=== PATIENT | male | born 1955 | race African-American/Black ===

== ENCOUNTER 2019-03-26 16:55 | Inpatient (IN) ==
[2019-03-26 17:43] LABS: Basophils % 0.3 % (0.0-0.8); Hematocrit 37.2 VOL% (42.0-52.0); Immature Granulocytes % 0.7 %; Lymphocytes # 0.7 10*3/uL (1.4-4.0); Lymphocytes % 5.4 % (21.2-54.2); Mean Corpuscular HGB Conc 32.3 GM/DL (32-36); Mean Corpuscular Volume 84.9 FL (87-102); Mean Platelet Volume 11.1 FL (9.6-12.0); Monocytes % 7.7 % (1.7-12.7); Neutrophils % 85.9 % (38.7-73.9); Platelet Count 408 T/CUMM (130-400); Red Blood Count 4.38 MC/CUMM (3.8-5.5); White Blood Count 13.5 T/CUMM (4-12)
[2019-03-26 18:00] LABS: Alanine Aminotransferase 9 U/L (16-61); Albumin 3.1 G/DL (3.4-5.0); Alkaline Phosphatase 72 U/L (45-117); Aspartate Amino Transferase 13 U/L (0-37); Blood Urea Nitrogen 18 MG/DL (7-18); Calcium 8.9 MG/DL (8.5-10.1); Glucose 137 MG/DL (74-106); Osmolality,Calculated 265.7 MOS/KG (273-304); Total Protein 7.4 G/DL (6.4-8.3)
[2019-03-26] MEDS ORDERED: SODIUM CHLORIDE 0.9% 1,000 ML IV STA (18:34)
[2019-03-26] MEDS ORDERED: ONDANSETRON 4 MG/2 ML VIAL IV STA (18:34)
[2019-03-26 19:15] LABS: Apearance,Urine CLEAR (Clear); Bacteria,Urine Occasional /HPF (Few); Bilirubin,Urine Negative (Negative); Blood, Urine Negative (Negative); Glucose,Urine (UA) Negative (Negative); Hyaline Casts,Urine 16 /LPF (0-3); Ketones,Urine Negative (Negative); Mucus,Urine Many /LPF (Occasional); Nitrite,Urine Negative (Negative); Protein,Urine Negative; RBC,Urine 1 /HPF (0-4); Sperm,Urine Moderate /HPF (Negative); Squamous Epithelial Cell,Urine Occasional /HPF (0-10); Urine Color Amber (Yellow); Urine Specific Gravity 1.016 (1.001-1.035); WBC,Urine 3 /HPF (0-6)
[2019-03-26] MEDS ORDERED: ONDANSETRON 4 MG/2 ML VIAL IV PRN (19:57)
[2019-03-26] MEDS ORDERED: ACETAMINOPHEN 325 MG TABLET PO PRN (19:57)
[2019-03-26] MEDS ORDERED: chlorproMAZINE INJ 25 MG in SODIUM CHLORIDE 0.9% 100 ML IV PRN (20:03)
[2019-03-26] MEDS: DEXTROSE 5% NACL 0.9% 1,000 ML IV SCH (22:00)
[2019-03-26] MEDS: ENOXAPARIN 40 MG/0.4 ML SYRINGE SUBCUT SCH (22:01)
[2019-03-27 05:42] LABS: Basophils % 0.2 % (0.0-0.8); Eosinophils % 0.2 % (0.00-10.9); Hematocrit 33.2 VOL% (42.0-52.0); Hemoglobin 10.6 GM/DL (14.0-18.0); Immature Granulocytes % 0.2 %; Immature Granulocytes Absolute 0.01 #; Lymphocytes # 0.9 10*3/uL (1.4-4.0); Mean Corpuscular HGB Conc 31.9 GM/DL (32-36); Mean Corpuscular Volume 85.3 FL (87-102); Mean Platelet Volume 11.1 FL (9.6-12.0); Monocytes % 15.8 % (1.7-12.7); Neutrophils % 61.6 % (38.7-73.9); Platelet Count 367 T/CUMM (130-400); Red Blood Count 3.89 MC/CUMM (3.8-5.5); Red Cell Distribution Width 14.3 % (9.3-17.3); White Blood Count 4.2 T/CUMM (4-12)
[2019-03-27 06:10] LABS: Band Neutrophils 5 % (0-10); Eosinophils 1 % (0-10); Hypochromasia 2+; Lymphocytes 23 % (20-55); Platelet Estimate Normal; Segmented Neutrophils 57 % (50-85); Total Cells Counted 100
[2019-03-27 06:11] LABS: Calcium 8.3 MG/DL (8.5-10.1); Osmolality,Calculated 276.8 MOS/KG (273-304); Thyroid Stimulating Hormone 1.9 uIU/ml (0.358-3.74)
[2019-03-27] MEDS: DEXTROSE 5% NACL 0.9% 1,000 ML IV SCH ×2 (06:19→17:36)
[2019-03-27] MEDS: POTASSIUM CHLORIDE 20 MEQ TABLET PO PRN ×4 (09:48→17:36)
[2019-03-27] MEDS: ENOXAPARIN 40 MG/0.4 ML SYRINGE SUBCUT SCH (20:39)
[2019-03-27] MEDS: POTASSIUM CHLORIDE 20 MEQ/15 ML UDCUP PO SCH (20:39)
[2019-03-27] MEDS ORDERED: cefTRIAXone 2,000 MG in SYRINGE 1 EACH IV SCH (21:30)
[2019-03-27] MEDS ORDERED: ALUMINUM/MAGNES/SIMETH MAX STR 30 ML UDCUP PO PRN (22:51)
[2019-03-28] MEDS ORDERED: ALBUTEROL/IPRATROPIUM 3 ML NEB RESP TX ONE (00:43)
[2019-03-28] MEDS ORDERED: FUROSEMIDE 40 MG/4 ML VIAL IM ONE (00:58)
[2019-03-28] MEDS ORDERED: FUROSEMIDE 40 MG/4 ML VIAL ONE (00:59)
[2019-03-28] MEDS ORDERED: FUROSEMIDE 40 MG/4 ML VIAL IV ONE (01:18)
[2019-03-28] MEDS: DEXTROSE 5% NACL 0.9% 1,000 ML IV SCH (01:20)
[2019-03-28 01:49] LABS: Basophils % 0.2 % (0.0-0.8); Eosinophils % 0.2 % (0.00-10.9); Hematocrit 35.1 VOL% (42.0-52.0); Hemoglobin 10.9 GM/DL (14.0-18.0); Immature Granulocytes % 0.2 %; Immature Granulocytes Absolute 0.01 #; Lymphocytes # 0.6 10*3/uL (1.4-4.0); Lymphocytes % 13.3 % (21.2-54.2); Mean Corpuscular HGB Conc 31.1 GM/DL (32-36); Mean Corpuscular Volume 87.8 FL (87-102); Mean Platelet Volume 10.5 FL (9.6-12.0); Neutrophils % 70.1 % (38.7-73.9); Platelet Count 302 T/CUMM (130-400); Red Cell Distribution Width 14.5 % (9.3-17.3); White Blood Count 4.1 T/CUMM (4-12)
[2019-03-28 02:11] LABS: Calcium 8.4 MG/DL (8.5-10.1); Osmolality,Calculated 276.8 MOS/KG (273-304)
[2019-03-28 03:54] LABS: Band Neutrophils 4 % (0-10); Eosinophils 1 % (0-10); Lymphocytes 14 % (20-55); Platelet Estimate Normal; Polychromasia Few; Segmented Neutrophils 75 % (50-85); Total Cells Counted 100
[2019-03-28] MEDS: POTASSIUM CHLORIDE 20 MEQ/15 ML UDCUP PO SCH ×3 (09:55→21:51)
[2019-03-28] MEDS ORDERED: PIPERACILLIN/TAZOBACTAM 3,375 MG in SODIUM CHLORIDE 0.9% 100 ML IV SCH (10:00)
[2019-03-28] MEDS ORDERED: PANTOPRAZOLE 40 MG TABLET PO SCH (10:30)
[2019-03-28] MEDS: methylPREDNISolone SOD SUC 40 MG/1 ML VIAL IV SCH ×2 (11:10→21:46)
[2019-03-28] MEDS ORDERED: DEXTROSE 10% 1,000 ML IV PRN (12:05)
[2019-03-28] MEDS ORDERED: DEXTROSE 50% 25 GM/50 ML VIAL IV PRN (12:05)
[2019-03-28] MEDS ORDERED: GLUCAGON 1 MG VIAL IM PRN (12:05)
[2019-03-28] MEDS: ALBUTEROL/IPRATROPIUM 3 ML NEB RESP TX SCH ×2 (12:49→19:25)
[2019-03-28] MEDS ORDERED: ALBUMIN 5% 12.5 GM/250 ML VIAL IV ONE (17:17)
[2019-03-28] MEDS ORDERED: PROPOFOL 200 MG/20 ML VIAL IV ONE (17:17)
[2019-03-28] MEDS ORDERED: fentaNYL 100 MCG/2 ML VIAL ONE (17:18)
[2019-03-28] MEDS ORDERED: HYDROCORTISONE 100 MG VIAL ONE (17:18)
[2019-03-28] MEDS ORDERED: MIDAZOLAM 2 MG/2 ML VIAL ONE (17:18)
[2019-03-28] MEDS ORDERED: ONDANSETRON 4 MG/2 ML VIAL ONE (17:18)
[2019-03-28] MEDS ORDERED: SUCCINYLCHOLINE 200 MG/10 ML VIAL ONE (17:18)
[2019-03-28] MEDS ORDERED: ACETAMINOPHEN 1,000 MG/100 ML VIAL IV ONE (17:18)
[2019-03-28] MEDS ORDERED: ROCURONIUM 100 MG/10 ML VIAL IV ONE (17:18)
[2019-03-28] MEDS ORDERED: HEPARIN/NACL 0.9% 2 UNITS/ML 500 ML IV ONE (17:41)
[2019-03-28] MEDS: DOXYCYCLINE HYCLATE INJ 100 MG in SODIUM CHLORIDE 0.9% 100 ML IV SCH ×2 (17:45→19:18)
[2019-03-28 18:27] LABS: ABG Base Excess 1.5 MMOL/L (-2.5-2.5); ABG HCO3 25.8 MMOL/L (20-26); ABG Oxygen Saturation 99.9 % (95-100); ABG PCO2 36.5 MM HG (35-48); ABG PH 7.449 (7.35-7.45); ABG TCO2 23.2 MMOL/L (23-27); Glucose Heart Surgery 158 MG/DL (74-106); Hematocrit Heart Surgery 28.5 PERCENT (42-52); Hemoglobin Heart Surgery 9.2 G/DL (14.0-18.0); Ionized Calcium Arterial 1.14 MMOL/L (1.21-1.46); PCO2 Patient Temp Arterial 36.5 MMHG; PH Patient Temp Arterial 7.449; Patient Temperature 37 CELCIUS; Potassium Heart/CVR 3.9 MMOL/L (3.5-5.1); Sodium Heart/CVR 136 MMOL/L (135-145)
[2019-03-28 19:06] LABS: Apearance,Urine CLEAR (Clear); Bilirubin,Urine Negative (Negative); Blood, Urine Negative (Negative); Glucose,Urine (UA) Negative (Negative); Ketones,Urine Negative (Negative); Mucus,Urine Occasional /LPF (Occasional); Nitrite,Urine Negative (Negative); Protein,Urine 30 MG/DL; RBC,Urine 2 /HPF (0-4); Urine Color Amber (Yellow); Urine Specific Gravity 1.055 (1.001-1.035); WBC,Urine 1 /HPF (0-6)
[2019-03-28] MEDS ORDERED: KETAMINE 500 MG/10 ML VIAL ONE (19:12)
[2019-03-28] MEDS ORDERED: LACTATED RINGERS 1,000 ML IV ONE (19:13)
[2019-03-28] MEDS ORDERED: SEVOFLURANE 1 UNIT/15 MINUTE INH ONE (19:13)
[2019-03-28] MEDS ORDERED: SODIUM CHLORIDE 0.9% 1,000 ML IV ONE (19:13)
[2019-03-28] MEDS ORDERED: PHENYLEPHRINE 10 MG/1 ML VIAL IV ONE (19:13)
[2019-03-28] MEDS: AMINO ACIDS/DEXT/LYTES 4.25-5% 2,000 ML IV SCH (19:53)
[2019-03-28] MEDS: DEXTROSE 5% NACL 0.45% 1,000 ML IV SCH (19:55)
[2019-03-28] MEDS: PIPERACILLIN/TAZOBACTAM 3,375 MG in SODIUM CHLORIDE 0.9% 100 ML IV SCH (20:02)
[2019-03-28] MEDS: PROPOFOL 1,000 MG/100 ML BOTTLE IV SCH (20:37)
[2019-03-28] MEDS: ENOXAPARIN 40 MG/0.4 ML SYRINGE SUBCUT SCH (21:45)
[2019-03-29] MEDS: ALBUTEROL/IPRATROPIUM 3 ML NEB RESP TX SCH ×4 (00:41→19:17)
[2019-03-29] MEDS: DOXYCYCLINE HYCLATE INJ 100 MG in SODIUM CHLORIDE 0.9% 100 ML IV SCH ×2 (03:37→15:20)
[2019-03-29] MEDS: PIPERACILLIN/TAZOBACTAM 3,375 MG in SODIUM CHLORIDE 0.9% 100 ML IV SCH ×3 (03:38→21:01)
[2019-03-29] MEDS: PROPOFOL 1,000 MG/100 ML BOTTLE IV SCH ×3 (04:43→19:54)
[2019-03-29 04:47] LABS: Basophils % 0.2 % (0.0-0.8); Hematocrit 27.3 VOL% (42.0-52.0); Hemoglobin 8.9 GM/DL (14.0-18.0); Immature Granulocytes % 0.4 %; Immature Granulocytes Absolute 0.02 #; Lymphocytes # 0.3 10*3/uL (1.4-4.0); Lymphocytes % 6.7 % (21.2-54.2); Mean Corpuscular HGB Conc 32.6 GM/DL (32-36); Mean Corpuscular Volume 85.8 FL (87-102); Monocytes % 6.3 % (1.7-12.7); Neutrophils % 86.4 % (38.7-73.9); Platelet Count 295 T/CUMM (130-400); Red Blood Count 3.18 MC/CUMM (3.8-5.5); Red Cell Distribution Width 14.6 % (9.3-17.3); White Blood Count 5.1 T/CUMM (4-12)
[2019-03-29] MEDS: DEXTROSE 5% NACL 0.45% 1,000 ML IV SCH ×3 (05:04→15:05)
[2019-03-29 05:10] LABS: Calcium 8.5 MG/DL (8.5-10.1); Osmolality,Calculated 279.5 MOS/KG (273-304)
[2019-03-29 05:50] LABS: Cancer Antigen 19-9 3.4 U/ML (0-37); Carcinoembryonic Antigen 6.2 NG/ML (0.0-5.0)
[2019-03-29 06:01] LABS: Band Neutrophils 10 % (0-10); Lymphocytes 8 % (20-55); Metamyelocytes 1 %; Segmented Neutrophils 74 % (50-85); Total Cells Counted 100
[2019-03-29 06:02] LABS: Anisocytosis 1+; Hypochromasia 2+; Macrocytosis 1+; Platelet Estimate Normal
[2019-03-29 06:48] LABS: ABG Base Excess 3.9 MMOL/L (-2.5-2.5); ABG HCO3 27.9 MMOL/L (20-26); ABG Oxygen Saturation 98.4 % (95-100); ABG PCO2 37.8 MM HG (35-48); ABG PH 7.472 (7.35-7.45); ABG PO2 96.1 MM HG (80-95); ABG TCO2 25.4 MMOL/L (23-27)
[2019-03-29] MEDS: POTASSIUM CHLORIDE 20 MEQ/15 ML UDCUP PO SCH (11:09)
[2019-03-29] MEDS: PANTOPRAZOLE 40 MG VIAL IV SCH (11:11)
[2019-03-29] MEDS: methylPREDNISolone SOD SUC 40 MG/1 ML VIAL IV SCH ×2 (11:13→21:45)
[2019-03-29] MEDS ORDERED: POTASSIUM CHLORIDE 20 MEQ/15 ML UDCUP PO SCH (11:30)
[2019-03-29] MEDS: AMINO ACIDS/DEXT/LYTES 4.25-5% 2,000 ML IV SCH (18:03)
[2019-03-29] MEDS: ENOXAPARIN 40 MG/0.4 ML SYRINGE SUBCUT SCH (21:02)
[2019-03-30] MEDS: DEXTROSE 5% NACL 0.45% 1,000 ML IV SCH ×2 (00:15→03:19)
[2019-03-30] MEDS: ALBUTEROL/IPRATROPIUM 3 ML NEB RESP TX SCH ×4 (01:31→20:07)
[2019-03-30] MEDS: DOXYCYCLINE HYCLATE INJ 100 MG in SODIUM CHLORIDE 0.9% 100 ML IV SCH ×2 (03:20→17:59)
[2019-03-30] MEDS: PIPERACILLIN/TAZOBACTAM 3,375 MG in SODIUM CHLORIDE 0.9% 100 ML IV SCH ×3 (04:25→19:23)
[2019-03-30 04:26] LABS: ABG Base Excess 3.2 MMOL/L (-2.5-2.5); ABG HCO3 27.3 MMOL/L (20-26); ABG Oxygen Saturation 98.1 % (95-100); ABG PCO2 37.1 MM HG (35-48); ABG PH 7.467 (7.35-7.45); ABG PO2 98.7 MM HG (80-95); ABG TCO2 24.2 MMOL/L (23-27)
[2019-03-30 04:27] LABS: Hematocrit 26.3 VOL% (42.0-52.0); Hemoglobin 8.6 GM/DL (14.0-18.0); Immature Granulocytes % 0.7 %; Immature Granulocytes Absolute 0.05 #; Lymphocytes # 0.2 10*3/uL (1.4-4.0); Lymphocytes % 3.1 % (21.2-54.2); Mean Corpuscular HGB Conc 32.7 GM/DL (32-36); Mean Corpuscular Volume 85.1 FL (87-102); Mean Platelet Volume 11.4 FL (9.6-12.0); Monocytes % 8.1 % (1.7-12.7); Neutrophils % 88.1 % (38.7-73.9); Platelet Count 301 T/CUMM (130-400); Red Blood Count 3.09 MC/CUMM (3.8-5.5); White Blood Count 6.7 T/CUMM (4-12)
[2019-03-30 04:50] LABS: Calcium 8.3 MG/DL (8.5-10.1); Osmolality,Calculated 286.1 MOS/KG (273-304)
[2019-03-30 05:12] LABS: Acanthocytes Few; Anisocytosis 1+; Band Neutrophils 2 % (0-10); Eosinophils 2 % (0-10); Lymphocytes 6 % (20-55); Microcytosis 1+; Platelet Estimate Normal; Segmented Neutrophils 83 % (50-85); Total Cells Counted 100
[2019-03-30] MEDS: PROPOFOL 1,000 MG/100 ML BOTTLE IV SCH ×2 (08:48→19:25)
[2019-03-30] MEDS: PANTOPRAZOLE 40 MG VIAL IV SCH (09:46)
[2019-03-30] MEDS: methylPREDNISolone SOD SUC 40 MG/1 ML VIAL IV SCH (09:48)
[2019-03-30] MEDS ORDERED: GLUCAGON 1 MG VIAL IM PRN (13:33)
[2019-03-30] MEDS ORDERED: DEXTROSE 50% 25 GM/50 ML VIAL IV PRN (13:33)
[2019-03-30] MEDS: cloNIDine 0.2 MG/24 HR PATCH TRANSDERM SCH (13:48)
[2019-03-30] MEDS: AMINO ACIDS/DEXT/LYTES 4.25-5% 2,000 ML IV SCH (18:00)
[2019-03-30] MEDS: INSULIN REGULAR 100 UNIT/ML SUBCUT SCH (18:18)
[2019-03-30] MEDS: ENOXAPARIN 40 MG/0.4 ML SYRINGE SUBCUT SCH (20:19)
[2019-03-31] MEDS: INSULIN REGULAR 100 UNIT/ML SUBCUT SCH ×5 (00:05→23:50)
[2019-03-31] MEDS: ALBUTEROL/IPRATROPIUM 3 ML NEB RESP TX SCH ×4 (01:36→19:43)
[2019-03-31] MEDS: DOXYCYCLINE HYCLATE INJ 100 MG in SODIUM CHLORIDE 0.9% 100 ML IV SCH ×2 (03:17→17:03)
[2019-03-31] MEDS: PIPERACILLIN/TAZOBACTAM 3,375 MG in SODIUM CHLORIDE 0.9% 100 ML IV SCH ×3 (04:53→21:18)
[2019-03-31 05:27] LABS: ABG HCO3 27.1 MMOL/L (20-26); ABG Oxygen Saturation 99.1 % (95-100); ABG PCO2 37.5 MM HG (35-48); ABG PH 7.461 (7.35-7.45)
[2019-03-31 05:53] LABS: Basophils % 0.1 % (0.0-0.8); Hematocrit 26.2 VOL% (42.0-52.0); Hemoglobin 8.3 GM/DL (14.0-18.0); Immature Granulocytes % 0.6 %; Immature Granulocytes Absolute 0.06 #; Lymphocytes % 10.6 % (21.2-54.2); Mean Corpuscular HGB Conc 31.7 GM/DL (32-36); Mean Corpuscular Volume 86.2 FL (87-102); Monocytes % 9.6 % (1.7-12.7); NRBC # 0.02 10*3/uL; Neutrophils % 79.1 % (38.7-73.9); Platelet Count 312 T/CUMM (130-400); Red Blood Count 3.04 MC/CUMM (3.8-5.5); Red Cell Distribution Width 15.2 % (9.3-17.3); White Blood Count 9.3 T/CUMM (4-12)
[2019-03-31 06:08] LABS: Alanine Aminotransferase < 9 U/L (16-61); Albumin 1.9 G/DL (3.4-5.0); Alkaline Phosphatase 48 U/L (45-117); Aspartate Amino Transferase 10 U/L (0-37); Blood Urea Nitrogen 13 MG/DL (7-18); Calcium 8.5 MG/DL (8.5-10.1); Glucose 111 MG/DL (74-106); Osmolality,Calculated 286.8 MOS/KG (273-304); Total Protein 5.6 G/DL (6.4-8.3)
[2019-03-31] MEDS: PROPOFOL 1,000 MG/100 ML BOTTLE IV SCH (06:38)
[2019-03-31] MEDS: PANTOPRAZOLE 40 MG VIAL IV SCH (08:44)
[2019-03-31 11:46] LABS: ABG Base Excess 4.6 MMOL/L (-2.5-2.5); ABG HCO3 28.6 MMOL/L (20-26); ABG Oxygen Saturation 97.4 % (95-100); ABG PCO2 38.8 MM HG (35-48); ABG PH 7.473 (7.35-7.45); ABG PO2 87.2 MM HG (80-95); ABG TCO2 26.2 MMOL/L (23-27)
[2019-03-31] MEDS ORDERED: HEPARIN/NACL 0.9% 2 UNITS/ML 500 ML IV ONE (11:46)
[2019-03-31] MEDS: MORPHINE 4 MG/1 ML VIAL IV PRN (14:24)
[2019-03-31] MEDS: AMINO ACIDS/DEXT/LYTES 4.25-5% 2,000 ML IV SCH (17:39)
[2019-03-31] MEDS: ENOXAPARIN 40 MG/0.4 ML SYRINGE SUBCUT SCH (21:21)
[2019-04-01] MEDS: ALBUTEROL/IPRATROPIUM 3 ML NEB RESP TX SCH ×4 (01:36→20:21)
[2019-04-01] MEDS: PIPERACILLIN/TAZOBACTAM 3,375 MG in SODIUM CHLORIDE 0.9% 100 ML IV SCH ×3 (03:23→20:19)
[2019-04-01] MEDS: DOXYCYCLINE HYCLATE INJ 100 MG in SODIUM CHLORIDE 0.9% 100 ML IV SCH ×2 (03:23→16:08)
[2019-04-01 04:36] LABS: ABG Base Excess 4.9 MMOL/L (-2.5-2.5); ABG HCO3 28.4 MMOL/L (20-26); ABG Oxygen Saturation 96.3 % (95-100); ABG PCO2 37.6 MM HG (35-48); ABG PH 7.496 (7.35-7.45); ABG PO2 88.3 MM HG (80-95); ABG TCO2 29.6 MMOL/L (23-27); Allen Test Positive
[2019-04-01 05:23] LABS: Basophils % 0.1 % (0.0-0.8); Eosinophils # 0.3 10*3/uL (0.0-0.87); Eosinophils % 4.4 % (0.00-10.9); Hematocrit 28.3 VOL% (42.0-52.0); Hemoglobin 8.8 GM/DL (14.0-18.0); Immature Granulocytes % 0.4 %; Immature Granulocytes Absolute 0.03 #; Lymphocytes # 1.3 10*3/uL (1.4-4.0); Lymphocytes % 19.1 % (21.2-54.2); Mean Corpuscular HGB Conc 31.1 GM/DL (32-36); Mean Platelet Volume 11.2 FL (9.6-12.0); Monocytes % 12.6 % (1.7-12.7); Neutrophils % 63.4 % (38.7-73.9); Platelet Count 343 T/CUMM (130-400); Red Blood Count 3.29 MC/CUMM (3.8-5.5); Red Cell Distribution Width 14.9 % (9.3-17.3); White Blood Count 6.8 T/CUMM (4-12)
[2019-04-01 06:00] LABS: Albumin 1.7 G/DL (3.4-5.0); Bilirubin,Total 1.1 MG/DL (0.2-1.0); Calcium 8.7 MG/DL (8.5-10.1); Osmolality,Calculated 286.8 MOS/KG (273-304); Total Protein 5.9 G/DL (6.4-8.3)
[2019-04-01] MEDS: INSULIN REGULAR 100 UNIT/ML SUBCUT SCH ×3 (06:21→18:26)
[2019-04-01] MEDS: MULTIVITAMIN LIQUID (CENTRUM) 60 ML BOTTLE PER TUBE SCH (09:48)
[2019-04-01] MEDS: PANTOPRAZOLE 40 MG VIAL IV SCH (09:48)
[2019-04-01] MEDS: AMINO ACIDS/DEXT/LYTES 4.25-5% 2,000 ML IV SCH (17:39)
[2019-04-01] MEDS: ENOXAPARIN 40 MG/0.4 ML SYRINGE SUBCUT SCH (20:19)
[2019-04-02] MEDS: ALBUTEROL/IPRATROPIUM 3 ML NEB RESP TX SCH ×4 (01:17→19:10)
[2019-04-02] MEDS: INSULIN REGULAR 100 UNIT/ML SUBCUT SCH ×4 (02:48→18:13)
[2019-04-02] MEDS: DOXYCYCLINE HYCLATE INJ 100 MG in SODIUM CHLORIDE 0.9% 100 ML IV SCH ×2 (03:53→16:18)
[2019-04-02] MEDS: PIPERACILLIN/TAZOBACTAM 3,375 MG in SODIUM CHLORIDE 0.9% 100 ML IV SCH ×3 (03:53→20:42)
[2019-04-02 05:20] LABS: Calcium 8.7 MG/DL (8.5-10.1)
[2019-04-02] MEDS: PANTOPRAZOLE 40 MG VIAL IV SCH (09:02)
[2019-04-02] MEDS: MULTIVITAMIN LIQUID (CENTRUM) 60 ML BOTTLE PER TUBE SCH (09:37)
[2019-04-02] MEDS: AMINO ACIDS/DEXT/LYTES 4.25-5% 2,000 ML IV SCH (17:49)
[2019-04-02] MEDS: ENOXAPARIN 40 MG/0.4 ML SYRINGE SUBCUT SCH (20:44)
[2019-04-03] MEDS: ALBUTEROL/IPRATROPIUM 3 ML NEB RESP TX SCH ×4 (00:07→19:37)
[2019-04-03] MEDS: INSULIN REGULAR 100 UNIT/ML SUBCUT SCH ×4 (01:31→18:18)
[2019-04-03] MEDS: DOXYCYCLINE HYCLATE INJ 100 MG in SODIUM CHLORIDE 0.9% 100 ML IV SCH ×2 (04:40→17:43)
[2019-04-03] MEDS: PIPERACILLIN/TAZOBACTAM 3,375 MG in SODIUM CHLORIDE 0.9% 100 ML IV SCH ×3 (04:41→20:36)
[2019-04-03 05:33] LABS: Calcium 8.6 MG/DL (8.5-10.1); Osmolality,Calculated 288.8 MOS/KG (273-304); Prealbumin 12.8 MG/DL (20-40)
[2019-04-03] MEDS: MULTIVITAMIN LIQUID (CENTRUM) 60 ML BOTTLE PER TUBE SCH (08:32)
[2019-04-03] MEDS: PANTOPRAZOLE 40 MG VIAL IV SCH (08:32)
[2019-04-03] MEDS: MORPHINE 4 MG/1 ML VIAL IV PRN (13:17)
[2019-04-03] MEDS: AMINO ACIDS/DEXT/LYTES 4.25-5% 2,000 ML IV SCH (17:42)
[2019-04-03] MEDS: ENOXAPARIN 40 MG/0.4 ML SYRINGE SUBCUT SCH (21:51)
[2019-04-04] MEDS: INSULIN REGULAR 100 UNIT/ML SUBCUT SCH ×5 (00:28→23:20)
[2019-04-04] MEDS: ALBUTEROL/IPRATROPIUM 3 ML NEB RESP TX SCH ×4 (00:33→19:59)
[2019-04-04] MEDS: DOXYCYCLINE HYCLATE INJ 100 MG in SODIUM CHLORIDE 0.9% 100 ML IV SCH ×2 (04:01→16:31)
[2019-04-04] MEDS: PIPERACILLIN/TAZOBACTAM 3,375 MG in SODIUM CHLORIDE 0.9% 100 ML IV SCH ×3 (04:02→20:28)
[2019-04-04 05:33] LABS: Basophils % 0.1 % (0.0-0.8); Eosinophils # 0.4 10*3/uL (0.0-0.87); Eosinophils % 5.1 % (0.00-10.9); Hematocrit 27.3 VOL% (42.0-52.0); Hemoglobin 8.7 GM/DL (14.0-18.0); Immature Granulocytes Absolute 0.08 #; Lymphocytes # 1.2 10*3/uL (1.4-4.0); Lymphocytes % 15.6 % (21.2-54.2); Mean Corpuscular HGB Conc 31.9 GM/DL (32-36); Mean Corpuscular Volume 85.3 FL (87-102); Monocytes % 8.6 % (1.7-12.7); Neutrophils % 69.6 % (38.7-73.9); Platelet Count 310 T/CUMM (130-400); Red Cell Distribution Width 15.1 % (9.3-17.3); White Blood Count 7.9 T/CUMM (4-12)
[2019-04-04] MEDS: PANTOPRAZOLE 40 MG VIAL IV SCH (08:04)
[2019-04-04] MEDS: MORPHINE 4 MG/1 ML VIAL IV PRN (08:04)
[2019-04-04] MEDS: MULTIVITAMIN LIQUID (CENTRUM) 60 ML BOTTLE PER TUBE SCH (08:05)
[2019-04-04 08:26] LABS: INR 1.1; PT Patient Result 11.8 SECS
[2019-04-04] MEDS ORDERED: DIAZEPAM 5 MG TABLET PO ONE (10:13)
[2019-04-04] MEDS ORDERED: ONDANSETRON 4 MG/2 ML VIAL IV ONE (10:32)
[2019-04-04] MEDS ORDERED: MIDAZOLAM 2 MG/2 ML VIAL IV ONE (10:32)
[2019-04-04] MEDS ORDERED: fentaNYL 100 MCG/2 ML VIAL IV ONE (10:32)
[2019-04-04] MEDS: SODIUM CHLORIDE 0.45% 1,000 ML IV SCH (14:37)
[2019-04-04] MEDS: AMINO ACIDS/DEXT/LYTES 4.25-5% 2,000 ML IV SCH (16:31)
[2019-04-04] MEDS: ENOXAPARIN 40 MG/0.4 ML SYRINGE SUBCUT SCH (20:29)
[2019-04-05] MEDS: ALBUTEROL/IPRATROPIUM 3 ML NEB RESP TX SCH ×4 (00:51→19:18)
[2019-04-05] MEDS: PIPERACILLIN/TAZOBACTAM 3,375 MG in SODIUM CHLORIDE 0.9% 100 ML IV SCH (03:07)
[2019-04-05 05:41] LABS: Basophils % 0.4 % (0.0-0.8); Eosinophils # 0.4 10*3/uL (0.0-0.87); Eosinophils % 4.7 % (0.00-10.9); Hematocrit 28.2 VOL% (42.0-52.0); Hemoglobin 8.8 GM/DL (14.0-18.0); Immature Granulocytes % 0.8 %; Immature Granulocytes Absolute 0.06 #; Lymphocytes # 1.2 10*3/uL (1.4-4.0); Lymphocytes % 15.4 % (21.2-54.2); Mean Corpuscular HGB Conc 31.2 GM/DL (32-36); Mean Corpuscular Volume 86.2 FL (87-102); Mean Platelet Volume 10.6 FL (9.6-12.0); Monocytes % 7.8 % (1.7-12.7); Neutrophils % 70.9 % (38.7-73.9); Platelet Count 329 T/CUMM (130-400); Red Blood Count 3.27 MC/CUMM (3.8-5.5); Red Cell Distribution Width 15.1 % (9.3-17.3); White Blood Count 7.7 T/CUMM (4-12)
[2019-04-05] MEDS: INSULIN REGULAR 100 UNIT/ML SUBCUT SCH ×2 (06:16→11:27)
[2019-04-05 06:28] LABS: Calcium 8.1 MG/DL (8.5-10.1); Osmolality,Calculated 281.3 MOS/KG (273-304)
[2019-04-05] MEDS: PANTOPRAZOLE 40 MG VIAL IV SCH (09:45)
[2019-04-05] MEDS: SODIUM CHLORIDE 0.45% 1,000 ML IV SCH (11:03)
[2019-04-05] MEDS: MORPHINE 4 MG/1 ML VIAL IV PRN (14:49)
[2019-04-05] MEDS: DEXT 5% NACL 0.45% KCL 20 MEQ 20 MEQ/1,000 ML BAG IV SCH (14:56)
[2019-04-05] MEDS: ENOXAPARIN 40 MG/0.4 ML SYRINGE SUBCUT SCH (20:47)
[2019-04-06] MEDS: ALBUTEROL/IPRATROPIUM 3 ML NEB RESP TX SCH ×5 (00:18→23:56)
[2019-04-06] MEDS: DEXT 5% NACL 0.45% KCL 20 MEQ 20 MEQ/1,000 ML BAG IV SCH (04:15)
[2019-04-06] MEDS: PANTOPRAZOLE 40 MG VIAL IV SCH (09:22)
[2019-04-06] MEDS: cloNIDine 0.2 MG/24 HR PATCH TRANSDERM SCH (09:27)
[2019-04-06] MEDS: ENOXAPARIN 40 MG/0.4 ML SYRINGE SUBCUT SCH (20:40)
[2019-04-06] MEDS: MORPHINE 4 MG/1 ML VIAL IV PRN (23:18)
[2019-04-07] MEDS: MORPHINE 4 MG/1 ML VIAL IV PRN ×3 (00:59→18:34)
[2019-04-07 04:42] LABS: Basophils % 0.6 % (0.0-0.8); Eosinophils # 0.3 10*3/uL (0.0-0.87); Eosinophils % 4.3 % (0.00-10.9); Hematocrit 26.6 VOL% (42.0-52.0); Hemoglobin 8.5 GM/DL (14.0-18.0); Immature Granulocytes % 0.5 %; Immature Granulocytes Absolute 0.03 #; Lymphocytes # 1.2 10*3/uL (1.4-4.0); Mean Corpuscular Volume 85.5 FL (87-102); Mean Platelet Volume 10.8 FL (9.6-12.0); Monocytes % 8.5 % (1.7-12.7); Neutrophils % 67.1 % (38.7-73.9); Platelet Count 348 T/CUMM (130-400); Red Blood Count 3.11 MC/CUMM (3.8-5.5); Red Cell Distribution Width 15.4 % (9.3-17.3); White Blood Count 6.3 T/CUMM (4-12)
[2019-04-07 04:48] LABS: Calcium 8.3 MG/DL (8.5-10.1); Osmolality,Calculated 278.3 MOS/KG (273-304)
[2019-04-07] MEDS: ALBUTEROL/IPRATROPIUM 3 ML NEB RESP TX SCH ×3 (07:30→19:51)
[2019-04-07] MEDS: PANTOPRAZOLE 40 MG TABLET PO SCH (08:05)
[2019-04-07] MEDS: ENOXAPARIN 40 MG/0.4 ML SYRINGE SUBCUT SCH (21:10)
[2019-04-08] MEDS: ALBUTEROL/IPRATROPIUM 3 ML NEB RESP TX SCH ×4 (00:41→18:56)
[2019-04-08] MEDS: PANTOPRAZOLE 40 MG TABLET PO SCH (08:14)
[2019-04-08] MEDS: MORPHINE 4 MG/1 ML VIAL IV PRN ×2 (13:48→17:11)
[2019-04-08] MEDS: NYSTATIN 500,000 UNIT/5 ML UDCUP SWISH/SWAL SCH ×2 (17:08→21:12)
[2019-04-08] MEDS: ENOXAPARIN 40 MG/0.4 ML SYRINGE SUBCUT SCH (21:12)
[2019-04-08] MEDS: DOCUSATE/SENNA 50-8.6 MG TABLET PO SCH (21:12)
[2019-04-09] MEDS: ALBUTEROL/IPRATROPIUM 3 ML NEB RESP TX SCH ×4 (01:00→19:51)
[2019-04-09 06:10] LABS: Basophils % 0.7 % (0.0-0.8); Eosinophils # 0.3 10*3/uL (0.0-0.87); Hematocrit 25.7 VOL% (42.0-52.0); Hemoglobin 8.2 GM/DL (14.0-18.0); Immature Granulocytes % 0.5 %; Immature Granulocytes Absolute 0.03 #; Lymphocytes # 1.3 10*3/uL (1.4-4.0); Lymphocytes % 22.9 % (21.2-54.2); Mean Corpuscular HGB Conc 31.9 GM/DL (32-36); Mean Corpuscular Volume 85.1 FL (87-102); Mean Platelet Volume 10.9 FL (9.6-12.0); Monocytes % 10.3 % (1.7-12.7); Neutrophils % 60.6 % (38.7-73.9); Platelet Count 382 T/CUMM (130-400); Red Blood Count 3.02 MC/CUMM (3.8-5.5); Red Cell Distribution Width 15.3 % (9.3-17.3); White Blood Count 5.6 T/CUMM (4-12)
[2019-04-09 06:36] LABS: Calcium 8.8 MG/DL (8.5-10.1); Osmolality,Calculated 274.5 MOS/KG (273-304)
[2019-04-09] MEDS: DOCUSATE/SENNA 50-8.6 MG TABLET PO SCH ×2 (09:49→21:00)
[2019-04-09] MEDS: NYSTATIN 500,000 UNIT/5 ML UDCUP SWISH/SWAL SCH ×4 (10:00→21:00)
[2019-04-09] MEDS: PANTOPRAZOLE 40 MG TABLET PO SCH (10:00)
[2019-04-09] MEDS: ENOXAPARIN 40 MG/0.4 ML SYRINGE SUBCUT SCH (21:00)
[2019-04-09] MEDS ORDERED: SERTRALINE 50 MG TABLET PO SCH (21:00)
[2019-04-10] MEDS: ALBUTEROL/IPRATROPIUM 3 ML NEB RESP TX SCH ×3 (01:21→13:10)
[2019-04-10] MEDS: MORPHINE 4 MG/1 ML VIAL IV PRN (08:46)
[2019-04-10] MEDS: DOCUSATE/SENNA 50-8.6 MG TABLET PO SCH (08:48)
[2019-04-10] MEDS: PANTOPRAZOLE 40 MG TABLET PO SCH (08:48)
[2019-04-10] MEDS: NYSTATIN 500,000 UNIT/5 ML UDCUP SWISH/SWAL SCH ×2 (08:48→14:49)
[2019-04-10 12:10] VITALS: BP 92/50
== END 2019-04-10 14:30 | disposition swing bed (61) | DRG 329 ==
LOC: N.EDINP 16:55 → N.ED 16:55 → SUATTDRO 19:57 → N.EDINP 21:44 → N.2E 21:51 → SUATTDRO 03-27 21:32 → N.ICU 03-28 01:21 → N.4E 03-31 15:51
PROVIDERS: ADMIT Internal Medicine Nephrology; ATTEND Internal Medicine

== ENCOUNTER 2019-05-27 21:10 | Inpatient (IN) ==
[2019-05-28] MEDS ORDERED: LACTATED RINGERS 250 ML IV ONE (00:10)
[2019-05-28 01:04] LABS: Basophils % 0.6 % (0.0-0.8); Eosinophils # 0.1 10*3/uL (0.0-0.87); Eosinophils % 0.9 % (0.00-10.9); Hemoglobin 10.8 GM/DL (14.0-18.0); Immature Granulocytes % 0.7 %; Immature Granulocytes Absolute 0.05 #; Lymphocytes # 0.7 10*3/uL (1.4-4.0); Lymphocytes % 10.6 % (21.2-54.2); Mean Corpuscular Volume 78.4 FL (87-102); Mean Platelet Volume 10.4 FL (9.6-12.0); Monocytes % 5.3 % (1.7-12.7); Neutrophils % 81.9 % (38.7-73.9); Platelet Count 353 T/CUMM (130-400); Red Blood Count 4.59 MC/CUMM (3.8-5.5); White Blood Count 6.8 T/CUMM (4-12)
[2019-05-28 01:30] LABS: Alanine Aminotransferase 19 U/L (16-61); Alkaline Phosphatase 109 U/L (45-117); Aspartate Amino Transferase 40 U/L (0-37); Blood Urea Nitrogen 7 MG/DL (7-18); Calcium 8.9 MG/DL (8.5-10.1); Glucose 104 MG/DL (74-106); Total Protein 8.8 G/DL (6.4-8.3)
[2019-05-28] MEDS ORDERED: LACTATED RINGERS 1,000 ML IV ONE (01:42)
[2019-05-28 01:43] LABS: Apearance,Urine CLEAR (Clear); Bacteria,Urine Occasional /HPF (Few); Bilirubin,Urine Negative (Negative); Blood, Urine Negative (Negative); Glucose,Urine (UA) Negative (Negative); Ketones,Urine Negative (Negative); Mucus,Urine Occasional /LPF (Occasional); Nitrite,Urine Negative (Negative); Protein,Urine Negative; RBC,Urine 3 /HPF (0-4); Sperm,Urine Few /HPF (Negative); Squamous Epithelial Cell,Urine Occasional /HPF (0-10); Urine Color Yellow (Yellow); Urine Specific Gravity 1.017 (1.001-1.035); Urine Urobilinogen < 2.0 EU/DL (0.2-1.0); WBC,Urine 1 /HPF (0-6)
[2019-05-28] MEDS ORDERED: PIPERACILLIN/TAZOBACTAM 3,375 MG in SODIUM CHLORIDE 0.9% 100 ML IV STA (02:06)
[2019-05-28] MEDS ORDERED: VANCOMYCIN INJ 1,000 MG in SODIUM CHLORIDE 0.9% 250 ML IV STA (02:06)
[2019-05-28] MEDS ORDERED: ONDANSETRON 4 MG/2 ML VIAL IV PRN (04:13)
[2019-05-28] MEDS: PANTOPRAZOLE 40 MG TABLET PO SCH (08:12)
[2019-05-28] MEDS: DOCUSATE SODIUM 100 MG CAPSULE PO SCH ×2 (08:12→21:58)
[2019-05-28] MEDS: metroNIDAZOLE INJ 500 MG in PREMIX 1 EACH IV SCH ×2 (14:44→21:58)
[2019-05-28] MEDS: PIPERACILLIN/TAZOBACTAM 3,375 MG in SODIUM CHLORIDE 0.9% 100 ML IV SCH (16:03)
[2019-05-28] MEDS: ACETAMINOPHEN 325 MG TABLET PO PRN (16:15)
[2019-05-29] MEDS: PIPERACILLIN/TAZOBACTAM 3,375 MG in SODIUM CHLORIDE 0.9% 100 ML IV SCH ×3 (00:27→17:47)
[2019-05-29] MEDS: metroNIDAZOLE INJ 500 MG in PREMIX 1 EACH IV SCH ×3 (05:31→21:58)
[2019-05-29] MEDS: PANTOPRAZOLE 40 MG TABLET PO SCH (08:25)
[2019-05-29] MEDS: DOCUSATE SODIUM 100 MG CAPSULE PO SCH ×2 (08:25→21:36)
[2019-05-30] MEDS: PIPERACILLIN/TAZOBACTAM 3,375 MG in SODIUM CHLORIDE 0.9% 100 ML IV SCH ×3 (01:12→17:03)
[2019-05-30] MEDS: metroNIDAZOLE INJ 500 MG in PREMIX 1 EACH IV SCH ×3 (06:36→22:12)
[2019-05-30] MEDS: PANTOPRAZOLE 40 MG TABLET PO SCH (10:13)
[2019-05-30] MEDS: DOCUSATE SODIUM 100 MG CAPSULE PO SCH ×2 (10:13→21:09)
[2019-05-30 13:14] LABS: Basophils % 0.7 % (0.0-0.8); Eosinophils # 0.5 10*3/uL (0.0-0.87); Eosinophils % 9.1 % (0.00-10.9); Hematocrit 29.8 VOL% (42.0-52.0); Hemoglobin 9.1 GM/DL (14.0-18.0); Immature Granulocytes % 0.3 %; Immature Granulocytes Absolute 0.02 #; Lymphocytes # 1.2 10*3/uL (1.4-4.0); Lymphocytes % 20.3 % (21.2-54.2); Mean Corpuscular HGB Conc 30.5 GM/DL (32-36); Mean Corpuscular Volume 77.4 FL (87-102); Monocytes % 9.4 % (1.7-12.7); Neutrophils % 60.2 % (38.7-73.9); Platelet Count 474 T/CUMM (130-400); Red Blood Count 3.85 MC/CUMM (3.8-5.5); Red Cell Distribution Width 19.3 % (9.3-17.3); White Blood Count 5.7 T/CUMM (4-12)
[2019-05-30 13:37] LABS: Calcium 8.6 MG/DL (8.5-10.1); Osmolality,Calculated 281.3 MOS/KG (273-304)
[2019-05-30] MEDS: SERTRALINE 50 MG TABLET PO SCH (21:09)
[2019-05-31] MEDS: PIPERACILLIN/TAZOBACTAM 3,375 MG in SODIUM CHLORIDE 0.9% 100 ML IV SCH ×4 (00:57→16:22)
[2019-05-31 05:25] LABS: Basophils # 0.1 10*3/uL (0.0-0.2); Eosinophils # 0.6 10*3/uL (0.0-0.87); Eosinophils % 9.9 % (0.00-10.9); Hemoglobin 9.2 GM/DL (14.0-18.0); Immature Granulocytes % 0.5 %; Immature Granulocytes Absolute 0.03 #; Lymphocytes # 1.7 10*3/uL (1.4-4.0); Mean Corpuscular HGB Conc 29.7 GM/DL (32-36); Mean Corpuscular Volume 77.7 FL (87-102); Mean Platelet Volume 10.2 FL (9.6-12.0); Monocytes % 12.4 % (1.7-12.7); Neutrophils % 49.2 % (38.7-73.9); Platelet Count 483 T/CUMM (130-400); Red Blood Count 3.99 MC/CUMM (3.8-5.5); Red Cell Distribution Width 19.3 % (9.3-17.3); White Blood Count 6.2 T/CUMM (4-12)
[2019-05-31] MEDS ORDERED: cefOXitin 1,000 MG in SODIUM CHLORIDE 0.9% 100 ML IV ONE (05:31)
[2019-05-31 05:46] LABS: Eosinophils 13 % (0-10); Lymphocytes 25 % (20-55); Segmented Neutrophils 51 % (50-85); Total Cells Counted 100
[2019-05-31 05:47] LABS: Hypochromasia 2+; Ovalocytes Slight; Platelet Estimate Adequate
[2019-05-31 05:53] LABS: Calcium 8.8 MG/DL (8.5-10.1); Osmolality,Calculated 280.1 MOS/KG (273-304)
[2019-05-31] MEDS: metroNIDAZOLE INJ 500 MG in PREMIX 1 EACH IV SCH ×3 (06:05→23:32)
[2019-05-31] MEDS ORDERED: cefOXitin 1,000 MG in SYRINGE 1 EACH IV ONE (06:30)
[2019-05-31] MEDS ORDERED: EPINEPHrine 1 MG/ML VIAL ONE (07:02)
[2019-05-31] MEDS ORDERED: DEXAMETHASONE 4 MG/1 ML VIAL ONE ×2 (07:02→11:40)
[2019-05-31] MEDS ORDERED: BUPIVACAINE 0.5% 50 ML VIAL ONE (07:02)
[2019-05-31] MEDS: LACTATED RINGERS 1,000 ML IV SCH ×3 (07:35→11:00)
[2019-05-31] MEDS ORDERED: MICROFIBRILLAR COLLAGEN POWDER 1 GM CAN TOP ONE (09:33)
[2019-05-31 10:34] LABS: Hematocrit 30.7 VOL% (42.0-52.0); Hemoglobin 9.3 GM/DL (14.0-18.0)
[2019-05-31] MEDS ORDERED: ALBUMIN 5% 12.5 GM/250 ML VIAL IV ONE (11:39)
[2019-05-31] MEDS ORDERED: PROPOFOL 200 MG/20 ML VIAL IV ONE (11:39)
[2019-05-31] MEDS ORDERED: SEVOFLURANE 1 UNIT/15 MINUTE INH ONE (11:39)
[2019-05-31] MEDS ORDERED: ONDANSETRON 4 MG/2 ML VIAL ONE (11:40)
[2019-05-31] MEDS ORDERED: ROCURONIUM 100 MG/10 ML VIAL IV ONE (11:40)
[2019-05-31] MEDS ORDERED: GLYCOPYRROLATE 0.4 MG/2 ML VIAL ONE (11:40)
[2019-05-31] MEDS ORDERED: MIDAZOLAM 2 MG/2 ML VIAL ONE (11:40)
[2019-05-31] MEDS ORDERED: ACETAMINOPHEN 1,000 MG/100 ML VIAL IV ONE (11:40)
[2019-05-31] MEDS ORDERED: NEOSTIGMINE 10 MG/10 ML VIAL ONE (11:40)
[2019-05-31] MEDS ORDERED: PHENYLEPHRINE 10 MG/1 ML VIAL IV ONE (11:41)
[2019-05-31] MEDS ORDERED: SODIUM CHLORIDE 0.9% 250 ML IV ONE (11:41)
[2019-05-31] MEDS ORDERED: LACTATED RINGERS 2,000 ML IV ONE (11:41)
[2019-05-31] MEDS ORDERED: SODIUM CHLORIDE 0.9% 100 ML IV ONE (11:41)
[2019-05-31] MEDS ORDERED: ONDANSETRON 4 MG/2 ML VIAL IV PRN (11:52)
[2019-05-31] MEDS: HYDROmorphone 2 MG/1 ML VIAL IV PRN ×6 (11:55→23:32)
[2019-05-31] MEDS ORDERED: ePHEDrine 50 MG/ML AMP ONE (13:02)
[2019-05-31] MEDS: PANTOPRAZOLE 40 MG TABLET PO SCH (14:08)
[2019-05-31] MEDS: DOCUSATE SODIUM 100 MG CAPSULE PO SCH ×2 (14:08→20:43)
[2019-05-31] MEDS: DEXTROSE 5% LACTATED RINGERS 1,000 ML IV SCH ×2 (14:08→23:32)
[2019-05-31 16:38] LABS: Hematocrit 32.6 VOL% (42.0-52.0)
[2019-05-31 19:42] LABS: Hematocrit 33.3 VOL% (42.0-52.0); Hemoglobin 10.1 GM/DL (14.0-18.0)
[2019-05-31] MEDS: SERTRALINE 50 MG TABLET PO SCH (20:43)
[2019-06-01] MEDS: PIPERACILLIN/TAZOBACTAM 3,375 MG in SODIUM CHLORIDE 0.9% 100 ML IV SCH (02:41)
[2019-06-01] MEDS: HYDROmorphone 2 MG/1 ML VIAL IV PRN ×3 (04:46→16:58)
[2019-06-01] MEDS: DEXTROSE 5% LACTATED RINGERS 1,000 ML IV SCH ×3 (04:47→21:44)
[2019-06-01 05:42] LABS: Basophils % 0.1 % (0.0-0.8); Eosinophils % 0.3 % (0.00-10.9); Hematocrit 30.1 VOL% (42.0-52.0); Hemoglobin 9.2 GM/DL (14.0-18.0); Immature Granulocytes % 0.3 %; Immature Granulocytes Absolute 0.02 #; Lymphocytes # 0.8 10*3/uL (1.4-4.0); Lymphocytes % 10.1 % (21.2-54.2); Mean Corpuscular HGB Conc 30.6 GM/DL (32-36); Mean Corpuscular Volume 75.6 FL (87-102); Mean Platelet Volume 10.1 FL (9.6-12.0); Monocytes % 11.9 % (1.7-12.7); Neutrophils % 77.3 % (38.7-73.9); Platelet Count 489 T/CUMM (130-400); Red Blood Count 3.98 MC/CUMM (3.8-5.5); Red Cell Distribution Width 18.8 % (9.3-17.3)
[2019-06-01 06:14] LABS: Calcium 8.4 MG/DL (8.5-10.1); Osmolality,Calculated 274.8 MOS/KG (273-304)
[2019-06-01] MEDS: metroNIDAZOLE INJ 500 MG in PREMIX 1 EACH IV SCH (06:35)
[2019-06-01] MEDS: DOCUSATE SODIUM 100 MG CAPSULE PO SCH ×2 (08:20→21:45)
[2019-06-01] MEDS: PANTOPRAZOLE 40 MG TABLET PO SCH (08:20)
[2019-06-01] MEDS ORDERED: ROPIVACAINE 0.5% 30 ML VIAL ONE (08:55)
[2019-06-01] MEDS ORDERED: MIDAZOLAM 2 MG/2 ML VIAL ONE (08:55)
[2019-06-01] MEDS ORDERED: fentaNYL 100 MCG/2 ML VIAL ONE (08:55)
[2019-06-01] MEDS: fentaNYL 2 MCG/ROPIV 0.2% EPID 100 ML EPIDURAL SCH (12:08)
[2019-06-01] MEDS ORDERED: KETOROLAC 30 MG/1 ML VIAL IV ONE (15:00)
[2019-06-01] MEDS: SERTRALINE 50 MG TABLET PO SCH (21:45)
[2019-06-01] MEDS: KETOROLAC 15 MG/1 ML VIAL IV SCH (21:46)
[2019-06-02] MEDS: fentaNYL 2 MCG/ROPIV 0.2% EPID 100 ML EPIDURAL SCH ×3 (01:47→18:23)
[2019-06-02] MEDS: KETOROLAC 15 MG/1 ML VIAL IV SCH ×4 (03:11→21:14)
[2019-06-02] MEDS: HYDROmorphone 2 MG/1 ML VIAL IV PRN ×3 (03:17→22:57)
[2019-06-02 09:21] LABS: Basophils % 0.1 % (0.0-0.8); Eosinophils # 0.2 10*3/uL (0.0-0.87); Eosinophils % 2.6 % (0.00-10.9); Hematocrit 24.9 VOL% (42.0-52.0); Hemoglobin 7.4 GM/DL (14.0-18.0); Immature Granulocytes % 0.4 %; Immature Granulocytes Absolute 0.03 #; Lymphocytes # 0.9 10*3/uL (1.4-4.0); Mean Corpuscular HGB Conc 29.7 GM/DL (32-36); Mean Corpuscular Volume 76.1 FL (87-102); Mean Platelet Volume 10.9 FL (9.6-12.0); Neutrophils % 78.9 % (38.7-73.9); Platelet Count 411 T/CUMM (130-400); Red Blood Count 3.27 MC/CUMM (3.8-5.5); White Blood Count 7.2 T/CUMM (4-12)
[2019-06-02 09:46] LABS: Calcium 8.5 MG/DL (8.5-10.1); Osmolality,Calculated 284.1 MOS/KG (273-304)
[2019-06-02] MEDS: DOCUSATE SODIUM 100 MG CAPSULE PO SCH ×2 (09:52→21:14)
[2019-06-02] MEDS: PANTOPRAZOLE 40 MG TABLET PO SCH (09:52)
[2019-06-02] MEDS: DEXTROSE 5% LACTATED RINGERS 1,000 ML IV SCH ×2 (12:12→21:23)
[2019-06-02] MEDS ORDERED: SODIUM CHLORIDE 0.9% 1,000 ML IV PRN (12:23)
[2019-06-02] MEDS: POTASSIUM CHLORIDE 20 MEQ TABLET PO PRN ×4 (12:44→21:47)
[2019-06-02] MEDS ORDERED: ALBUTEROL/IPRATROPIUM 3 ML NEB RESP TX PRN (16:48)
[2019-06-02] MEDS: ALBUTEROL 1.25 MG/3 ML NEB RESP TX SCH (20:00)
[2019-06-02] MEDS: MAGNESIUM OXIDE 400 MG TABLET PO SCH (21:14)
[2019-06-02] MEDS: SERTRALINE 50 MG TABLET PO SCH (21:14)
[2019-06-03] MEDS: ALBUTEROL 1.25 MG/3 ML NEB RESP TX SCH ×5 (00:10→23:09)
[2019-06-03] MEDS: HYDROmorphone 2 MG/1 ML VIAL IV PRN ×4 (00:54→22:41)
[2019-06-03] MEDS: KETOROLAC 15 MG/1 ML VIAL IV SCH ×4 (05:00→21:30)
[2019-06-03 06:10] LABS: Basophils % 0.4 % (0.0-0.8); Eosinophils # 0.7 10*3/uL (0.0-0.87); Eosinophils % 7.7 % (0.00-10.9); Hematocrit 28.8 VOL% (42.0-52.0); Hemoglobin 8.9 GM/DL (14.0-18.0); Immature Granulocytes % 0.5 %; Immature Granulocytes Absolute 0.04 #; Lymphocytes % 12.1 % (21.2-54.2); Mean Corpuscular HGB Conc 30.9 GM/DL (32-36); Mean Corpuscular Volume 79.8 FL (87-102); Mean Platelet Volume 11.2 FL (9.6-12.0); Monocytes % 10.6 % (1.7-12.7); Neutrophils % 68.7 % (38.7-73.9); Platelet Count 375 T/CUMM (130-400); Red Blood Count 3.61 MC/CUMM (3.8-5.5); Red Cell Distribution Width 19.2 % (9.3-17.3); White Blood Count 8.4 T/CUMM (4-12)
[2019-06-03 06:44] LABS: Bilirubin,Total 0.6 MG/DL (0.2-1.0); Calcium 8.8 MG/DL (8.5-10.1); Osmolality,Calculated 286.7 MOS/KG (273-304); Total Protein 6.5 G/DL (6.4-8.3)
[2019-06-03] MEDS: DEXTROSE 5% LACTATED RINGERS 1,000 ML IV SCH (09:12)
[2019-06-03] MEDS: MAGNESIUM OXIDE 400 MG TABLET PO SCH ×2 (09:13→21:30)
[2019-06-03] MEDS: PANTOPRAZOLE 40 MG TABLET PO SCH (09:14)
[2019-06-03] MEDS: DOCUSATE SODIUM 100 MG CAPSULE PO SCH ×2 (09:14→21:30)
[2019-06-03] MEDS: POTASSIUM CHLORIDE IV SCH (15:04)
[2019-06-03] MEDS: MAGNESIUM SULF IV SCH (15:04)
[2019-06-03] MEDS: [UNRECOGNIZED DRUG - OTHER] IV SCH (15:04)
[2019-06-03] MEDS ORDERED: MAGNESIUM HYDROXIDE SUSP 30 ML UDCUP PO ONE (15:22)
[2019-06-03] MEDS: fentaNYL 2 MCG/ROPIV 0.2% EPID 100 ML EPIDURAL SCH (16:41)
[2019-06-03] MEDS ORDERED: FUROSEMIDE 40 MG/4 ML VIAL IV ONE ×2 (17:52→23:26)
[2019-06-03] MEDS ORDERED: CALCIUM CARBONATE CHEW 500 MG TABLET PO PRN (20:45)
[2019-06-03] MEDS: SERTRALINE 50 MG TABLET PO SCH (21:30)
[2019-06-04 01:17] LABS: Allen Test Positive
[2019-06-04 01:18] LABS: ABG Base Excess -1.3 MMOL/L (-2.5-2.5); ABG HCO3 23.3 MMOL/L (20-26); ABG Oxygen Saturation 97.6 % (95-100); ABG PH 7.244 (7.35-7.45); ABG TCO2 25.2 MMOL/L (23-27)
[2019-06-04] MEDS ORDERED: cefTRIAXone 1,000 MG in SODIUM CHLORIDE 0.9% 100 ML IV SCH (02:00)
[2019-06-04] MEDS ORDERED: ALBUTEROL NEB SOLN 5 MG/ML 20 ML/BOTTLE CONT NEB ONE (02:07)
[2019-06-04 02:40] LABS: Apearance,Urine Slightly Hazy (Clear); Bacteria,Urine Occasional /HPF (Few); Bilirubin,Urine Negative (Negative); Blood, Urine Large mg/dL (Negative); Glucose,Urine (UA) Negative (Negative); Hyaline Casts,Urine 1 /LPF (0-3); Ketones,Urine Negative (Negative); Mucus,Urine Occasional /LPF (Occasional); Nitrite,Urine Negative (Negative); Protein,Urine Negative; RBC,Urine 129 /HPF (0-4); Squamous Epithelial Cell,Urine Occasional /HPF (0-10); Urine Color Yellow (Yellow); Urine Specific Gravity 1.006 (1.001-1.035); Urine Urobilinogen < 2.0 EU/DL (0.2-1.0); WBC,Urine <1 /HPF (0-6)
[2019-06-04] MEDS: cefTRIAXone 1,000 MG in SYRINGE 1 EACH IV SCH (04:25)
[2019-06-04] MEDS: KETOROLAC 15 MG/1 ML VIAL IV SCH ×4 (04:32→20:45)
[2019-06-04] MEDS: HYDROmorphone 2 MG/1 ML VIAL IV PRN ×4 (04:35→23:55)
[2019-06-04 05:06] LABS: Basophils % 0.5 % (0.0-0.8); Eosinophils % 0.9 % (0.00-10.9); Hematocrit 32.4 VOL% (42.0-52.0); Immature Granulocytes % 0.5 %; Immature Granulocytes Absolute 0.01 #; Lymphocytes # 0.3 10*3/uL (1.4-4.0); Lymphocytes % 12.1 % (21.2-54.2); Mean Corpuscular HGB Conc 30.9 GM/DL (32-36); Mean Corpuscular Volume 80.2 FL (87-102); Mean Platelet Volume 11.1 FL (9.6-12.0); Monocytes % 5.1 % (1.7-12.7); Neutrophils % 80.9 % (38.7-73.9); Platelet Count 406 T/CUMM (130-400); Red Blood Count 4.04 MC/CUMM (3.8-5.5); Red Cell Distribution Width 19.7 % (9.3-17.3); White Blood Count 2.2 T/CUMM (4-12)
[2019-06-04 05:27] LABS: Calcium 8.7 MG/DL (8.5-10.1)
[2019-06-04 05:37] LABS: ABG Base Excess -0.6 MMOL/L (-2.5-2.5); ABG HCO3 23.9 MMOL/L (20-26); ABG Oxygen Saturation 96.8 % (95-100); ABG PCO2 39.6 MM HG (35-48); ABG PH 7.394 (7.35-7.45); ABG PO2 83.6 MM HG (80-95); ABG TCO2 22.1 MMOL/L (23-27); Allen Test Positive
[2019-06-04 05:47] LABS: Band Neutrophils 5 % (0-10); Lymphocytes 13 % (20-55); Platelet Estimate Normal; Segmented Neutrophils 78 % (50-85); Total Cells Counted 100
[2019-06-04] MEDS: [UNRECOGNIZED DRUG - OTHER] IV SCH ×3 (06:07→22:14)
[2019-06-04] MEDS: MAGNESIUM SULF IV SCH ×3 (06:07→22:14)
[2019-06-04] MEDS: POTASSIUM CHLORIDE IV SCH ×3 (06:07→22:14)
[2019-06-04] MEDS ORDERED: SODIUM CHLORIDE 0.9% 500 ML IV ONE (06:40)
[2019-06-04] MEDS ORDERED: PHENYLEPHRINE DRIP 40 MG/250 ML PREMIX IV PRN (07:06)
[2019-06-04] MEDS: ALBUTEROL 1.25 MG/3 ML NEB RESP TX SCH ×3 (07:51→19:23)
[2019-06-04] MEDS ORDERED: FUROSEMIDE 40 MG/4 ML VIAL IV SCH (08:00)
[2019-06-04] MEDS: fentaNYL 2 MCG/ROPIV 0.2% EPID 100 ML EPIDURAL SCH (09:42)
[2019-06-04] MEDS: DOCUSATE SODIUM 100 MG CAPSULE PO SCH ×2 (09:43→22:20)
[2019-06-04] MEDS: MAGNESIUM OXIDE 400 MG TABLET PO SCH ×2 (09:43→20:45)
[2019-06-04] MEDS: POTASSIUM CHLORIDE 20 MEQ TABLET PO PRN ×3 (09:43→16:10)
[2019-06-04] MEDS: PANTOPRAZOLE 40 MG TABLET PO SCH (09:43)
[2019-06-04] MEDS ORDERED: AZITHROMYCIN INJ 250 MG in SODIUM CHLORIDE 0.9% 250 ML IV SCH (10:00)
[2019-06-04] MEDS: SERTRALINE 50 MG TABLET PO SCH (20:45)
[2019-06-05] MEDS: ALBUTEROL 1.25 MG/3 ML NEB RESP TX SCH ×4 (01:29→19:35)
[2019-06-05] MEDS: [UNRECOGNIZED DRUG - OTHER] IV SCH ×3 (02:44→09:20)
[2019-06-05] MEDS: POTASSIUM CHLORIDE IV SCH ×3 (02:44→09:20)
[2019-06-05] MEDS: MAGNESIUM SULF IV SCH ×3 (02:44→09:20)
[2019-06-05] MEDS: fentaNYL 2 MCG/ROPIV 0.2% EPID 100 ML EPIDURAL SCH (02:45)
[2019-06-05] MEDS: cefTRIAXone 1,000 MG in SYRINGE 1 EACH IV SCH (03:50)
[2019-06-05] MEDS: KETOROLAC 15 MG/1 ML VIAL IV SCH ×4 (03:56→21:03)
[2019-06-05] MEDS: HYDROmorphone 2 MG/1 ML VIAL IV PRN (03:56)
[2019-06-05 04:46] LABS: Basophils # 0.1 10*3/uL (0.0-0.2); Basophils % 0.5 % (0.0-0.8); Eosinophils # 0.6 10*3/uL (0.0-0.87); Eosinophils % 3.4 % (0.00-10.9); Hematocrit 27.5 VOL% (42.0-52.0); Hemoglobin 8.6 GM/DL (14.0-18.0); Immature Granulocytes % 1.9 %; Immature Granulocytes Absolute 0.32 #; Lymphocytes # 0.9 10*3/uL (1.4-4.0); Mean Corpuscular HGB Conc 31.3 GM/DL (32-36); Mean Corpuscular Volume 79.5 FL (87-102); Neutrophils % 84.2 % (38.7-73.9); Platelet Count 373 T/CUMM (130-400); Red Blood Count 3.46 MC/CUMM (3.8-5.5); Red Cell Distribution Width 20.7 % (9.3-17.3); White Blood Count 16.8 T/CUMM (4-12)
[2019-06-05 05:10] LABS: Band Neutrophils 8 % (0-10); Eosinophils 1 % (0-10); Hypochromasia 1+; Lymphocytes 5 % (20-55); Metamyelocytes 2 %; Microcytosis 1+; Myelocytes 1 %; Ovalocytes Slight; Segmented Neutrophils 82 % (50-85); Total Cells Counted 100
[2019-06-05 05:11] LABS: Platelet Estimate Normal
[2019-06-05 05:20] LABS: Albumin 1.7 G/DL (3.4-5.0); Bilirubin,Total 0.5 MG/DL (0.2-1.0); Calcium 8.4 MG/DL (8.5-10.1); Osmolality,Calculated 288.7 MOS/KG (273-304); Total Protein 6.1 G/DL (6.4-8.3)
[2019-06-05 08:16] LABS: Basophils # 0.1 10*3/uL (0.0-0.2); Basophils % 0.3 % (0.0-0.8); Eosinophils # 0.7 10*3/uL (0.0-0.87); Eosinophils % 3.8 % (0.00-10.9); Hemoglobin 8.7 GM/DL (14.0-18.0); Immature Granulocytes % 2.1 %; Immature Granulocytes Absolute 0.37 #; Lymphocytes # 1.2 10*3/uL (1.4-4.0); Lymphocytes % 6.9 % (21.2-54.2); Mean Corpuscular HGB Conc 31.1 GM/DL (32-36); Mean Corpuscular Volume 78.9 FL (87-102); Mean Platelet Volume 11.1 FL (9.6-12.0); Monocytes % 4.9 % (1.7-12.7); Platelet Count 385 T/CUMM (130-400); Red Blood Count 3.55 MC/CUMM (3.8-5.5); White Blood Count 17.9 T/CUMM (4-12)
[2019-06-05 08:31] LABS: Calcium 8.6 MG/DL (8.5-10.1); Osmolality,Calculated 289.7 MOS/KG (273-304)
[2019-06-05] MEDS: PANTOPRAZOLE 40 MG TABLET PO SCH (08:32)
[2019-06-05] MEDS: PIPERACILLIN/TAZOBACTAM 3,375 MG in SODIUM CHLORIDE 0.9% 100 ML IV SCH ×3 (08:32→23:26)
[2019-06-05] MEDS: DOCUSATE SODIUM 100 MG CAPSULE PO SCH ×2 (08:32→21:04)
[2019-06-05] MEDS: MAGNESIUM OXIDE 400 MG TABLET PO SCH ×2 (08:32→08:35)
[2019-06-05] MEDS: POTASSIUM CHLORIDE 20 MEQ TABLET PO PRN (08:34)
[2019-06-05 08:38] LABS: Band Neutrophils 9 % (0-10); Eosinophils 2 % (0-10); Hypochromasia 1+; Lymphocytes 8 % (20-55); Platelet Estimate Adequate; Segmented Neutrophils 76 % (50-85); Total Cells Counted 100
[2019-06-05 08:39] LABS: Microcytosis 1+
[2019-06-05] MEDS: SERTRALINE 50 MG TABLET PO SCH (21:04)
[2019-06-06] MEDS: ALBUTEROL 1.25 MG/3 ML NEB RESP TX SCH ×4 (00:23→20:05)
[2019-06-06] MEDS: KETOROLAC 15 MG/1 ML VIAL IV SCH ×3 (04:27→16:22)
[2019-06-06 04:36] LABS: Basophils % 0.2 % (0.0-0.8); Eosinophils # 0.4 10*3/uL (0.0-0.87); Eosinophils % 2.5 % (0.00-10.9); Hematocrit 28.6 VOL% (42.0-52.0); Hemoglobin 8.9 GM/DL (14.0-18.0); Immature Granulocytes % 3.6 %; Immature Granulocytes Absolute 0.61 #; Lymphocytes % 5.6 % (21.2-54.2); Mean Corpuscular HGB Conc 31.1 GM/DL (32-36); Mean Corpuscular Volume 78.4 FL (87-102); Mean Platelet Volume 11.6 FL (9.6-12.0); Monocytes % 4.8 % (1.7-12.7); Neutrophils % 83.3 % (38.7-73.9); Platelet Count 412 T/CUMM (130-400); Red Blood Count 3.65 MC/CUMM (3.8-5.5); Red Cell Distribution Width 21.1 % (9.3-17.3)
[2019-06-06 04:54] LABS: Albumin 1.7 G/DL (3.4-5.0); Bilirubin,Total 0.8 MG/DL (0.2-1.0); Calcium 8.6 MG/DL (8.5-10.1); Osmolality,Calculated 291.4 MOS/KG (273-304); Total Protein 6.4 G/DL (6.4-8.3)
[2019-06-06 04:57] LABS: Band Neutrophils 2 % (0-10); Eosinophils 3 % (0-10); Lymphocytes 6 % (20-55); Platelet Estimate Increased; Segmented Neutrophils 83 % (50-85); Total Cells Counted 100
[2019-06-06 04:58] LABS: Hypochromasia Slight
[2019-06-06] MEDS: POTASSIUM CHLORIDE 20 MEQ TABLET PO PRN (06:28)
[2019-06-06] MEDS: DOCUSATE SODIUM 100 MG CAPSULE PO SCH ×2 (08:08→21:26)
[2019-06-06] MEDS: PIPERACILLIN/TAZOBACTAM 3,375 MG in SODIUM CHLORIDE 0.9% 100 ML IV SCH ×2 (08:08→16:17)
[2019-06-06] MEDS: PANTOPRAZOLE 40 MG TABLET PO SCH (08:09)
[2019-06-06] MEDS: POTASSIUM CHLORIDE RIDER 10 MEQ in PREMIX 1 EACH IV PRN ×4 (08:09→11:30)
[2019-06-06] MEDS: SERTRALINE 50 MG TABLET PO SCH (21:26)
[2019-06-07] MEDS: PIPERACILLIN/TAZOBACTAM 3,375 MG in SODIUM CHLORIDE 0.9% 100 ML IV SCH ×3 (00:26→16:49)
[2019-06-07] MEDS: ALBUTEROL 1.25 MG/3 ML NEB RESP TX SCH ×5 (00:41→19:35)
[2019-06-07 05:54] LABS: Hematocrit 27.7 VOL% (42.0-52.0); Hemoglobin 8.6 GM/DL (14.0-18.0); Mean Corpuscular Volume 79.1 FL (87-102); White Blood Count 9.8 T/CUMM (4-12)
[2019-06-07 05:55] LABS: Basophils % 0.3 % (0.0-0.8); Eosinophils # 0.7 10*3/uL (0.0-0.87); Immature Granulocytes % 0.8 %; Immature Granulocytes Absolute 0.08 #; Lymphocytes # 1.4 10*3/uL (1.4-4.0); Lymphocytes % 14.6 % (21.2-54.2); Monocytes % 7.3 % (1.7-12.7); Platelet Count 371 T/CUMM (130-400); Red Cell Distribution Width 21.2 % (9.3-17.3)
[2019-06-07 06:08] LABS: Albumin 1.7 G/DL (3.4-5.0); Calcium 8.3 MG/DL (8.5-10.1); Osmolality,Calculated 288.6 MOS/KG (273-304); Total Protein 6.5 G/DL (6.4-8.3)
[2019-06-07 06:18] LABS: Eosinophils 6 % (0-10); Hypochromasia 1+; Lymphocytes 8 % (20-55); Microcytosis 1+; Ovalocytes Slight; Platelet Estimate Adequate; Segmented Neutrophils 75 % (50-85); Total Cells Counted 100
[2019-06-07] MEDS: DOCUSATE SODIUM 100 MG CAPSULE PO SCH ×2 (09:25→21:29)
[2019-06-07] MEDS: PANTOPRAZOLE 40 MG TABLET PO SCH (09:25)
[2019-06-07] MEDS: SERTRALINE 50 MG TABLET PO SCH (21:28)
[2019-06-08] MEDS: ALBUTEROL 1.25 MG/3 ML NEB RESP TX SCH ×4 (00:34→20:46)
[2019-06-08] MEDS: PIPERACILLIN/TAZOBACTAM 3,375 MG in SODIUM CHLORIDE 0.9% 100 ML IV SCH ×3 (01:03→16:04)
[2019-06-08 05:24] LABS: Basophils % 0.5 % (0.0-0.8); Eosinophils # 0.6 10*3/uL (0.0-0.87); Eosinophils % 7.4 % (0.00-10.9); Hematocrit 28.9 VOL% (42.0-52.0); Hemoglobin 8.8 GM/DL (14.0-18.0); Immature Granulocytes % 0.5 %; Immature Granulocytes Absolute 0.04 #; Lymphocytes # 1.4 10*3/uL (1.4-4.0); Lymphocytes % 17.6 % (21.2-54.2); Mean Corpuscular HGB Conc 30.4 GM/DL (32-36); Mean Corpuscular Volume 78.1 FL (87-102); Mean Platelet Volume 11.2 FL (9.6-12.0); Platelet Count 406 T/CUMM (130-400); Red Cell Distribution Width 20.7 % (9.3-17.3); White Blood Count 8.1 T/CUMM (4-12)
[2019-06-08 05:46] LABS: Albumin 1.6 G/DL (3.4-5.0); Bilirubin,Total 0.5 MG/DL (0.2-1.0); Calcium 8.3 MG/DL (8.5-10.1); Osmolality,Calculated 284.7 MOS/KG (273-304); Total Protein 6.6 G/DL (6.4-8.3)
[2019-06-08] MEDS: DOCUSATE SODIUM 100 MG CAPSULE PO SCH ×2 (08:45→21:38)
[2019-06-08] MEDS: PANTOPRAZOLE 40 MG TABLET PO SCH (08:45)
[2019-06-08] MEDS: SERTRALINE 50 MG TABLET PO SCH (21:38)
[2019-06-09] MEDS: PIPERACILLIN/TAZOBACTAM 3,375 MG in SODIUM CHLORIDE 0.9% 100 ML IV SCH ×2 (00:36→08:25)
[2019-06-09] MEDS: ALBUTEROL 1.25 MG/3 ML NEB RESP TX SCH ×4 (00:40→20:07)
[2019-06-09 05:54] LABS: Basophils # 0.1 10*3/uL (0.0-0.2); Basophils % 0.7 % (0.0-0.8); Eosinophils # 0.4 10*3/uL (0.0-0.87); Eosinophils % 4.7 % (0.00-10.9); Hematocrit 31.2 VOL% (42.0-52.0); Hemoglobin 9.6 GM/DL (14.0-18.0); Immature Granulocytes % 0.6 %; Immature Granulocytes Absolute 0.05 #; Lymphocytes # 1.5 10*3/uL (1.4-4.0); Mean Corpuscular HGB Conc 30.8 GM/DL (32-36); Mean Platelet Volume 11.1 FL (9.6-12.0); Platelet Count 433 T/CUMM (130-400); Red Cell Distribution Width 20.9 % (9.3-17.3); White Blood Count 8.1 T/CUMM (4-12)
[2019-06-09 06:09] LABS: Albumin 1.8 G/DL (3.4-5.0); Bilirubin,Total 0.6 MG/DL (0.2-1.0); Calcium 8.8 MG/DL (8.5-10.1); Osmolality,Calculated 279.1 MOS/KG (273-304); Total Protein 7.3 G/DL (6.4-8.3)
[2019-06-09] MEDS: ACETAMINOPHEN 325 MG TABLET PO PRN (08:24)
[2019-06-09] MEDS: DOCUSATE SODIUM 100 MG CAPSULE PO SCH ×2 (08:24→21:19)
[2019-06-09] MEDS: PANTOPRAZOLE 40 MG TABLET PO SCH (08:25)
[2019-06-09] MEDS: POTASSIUM CHLORIDE RIDER 10 MEQ in PREMIX 1 EACH IV PRN ×3 (08:25→10:52)
[2019-06-09] MEDS ORDERED: POTASSIUM CHLORIDE 20 MEQ TABLET PO ONE (10:55)
[2019-06-09] MEDS ORDERED: MAGNESIUM SULF RIDER 2 GM in PREMIX 1 EACH IV ONE (10:56)
[2019-06-09] MEDS: SERTRALINE 50 MG TABLET PO SCH (21:19)
[2019-06-09] MEDS: MAGNESIUM CHLORIDE 64 MG TABLET PO SCH (21:19)
[2019-06-10] MEDS: ALBUTEROL 1.25 MG/3 ML NEB RESP TX SCH ×4 (00:47→19:20)
[2019-06-10 06:05] LABS: Basophils # 0.1 10*3/uL (0.0-0.2); Basophils % 0.8 % (0.0-0.8); Eosinophils # 0.3 10*3/uL (0.0-0.87); Eosinophils % 4.8 % (0.00-10.9); Hematocrit 32.4 VOL% (42.0-52.0); Hemoglobin 9.9 GM/DL (14.0-18.0); Immature Granulocytes % 0.6 %; Immature Granulocytes Absolute 0.04 #; Lymphocytes # 1.2 10*3/uL (1.4-4.0); Lymphocytes % 16.9 % (21.2-54.2); Mean Corpuscular HGB Conc 30.6 GM/DL (32-36); Mean Corpuscular Volume 78.1 FL (87-102); Mean Platelet Volume 11.1 FL (9.6-12.0); Monocytes % 12.3 % (1.7-12.7); Neutrophils % 64.6 % (38.7-73.9); Platelet Count 461 T/CUMM (130-400); Red Blood Count 4.15 MC/CUMM (3.8-5.5); Red Cell Distribution Width 21.2 % (9.3-17.3); White Blood Count 7.1 T/CUMM (4-12)
[2019-06-10 06:18] LABS: Albumin 1.9 G/DL (3.4-5.0); Bilirubin,Total 0.6 MG/DL (0.2-1.0); Calcium 8.7 MG/DL (8.5-10.1); Osmolality,Calculated 278.1 MOS/KG (273-304); Total Protein 7.3 G/DL (6.4-8.3)
[2019-06-10] MEDS: POTASSIUM CHLORIDE 20 MEQ TABLET PO SCH (08:14)
[2019-06-10] MEDS: PANTOPRAZOLE 40 MG TABLET PO SCH (08:15)
[2019-06-10] MEDS: MAGNESIUM CHLORIDE 64 MG TABLET PO SCH ×2 (08:15→21:23)
[2019-06-10] MEDS: DOCUSATE SODIUM 100 MG CAPSULE PO SCH ×2 (08:15→21:24)
[2019-06-10] MEDS: SERTRALINE 50 MG TABLET PO SCH (21:23)
[2019-06-11] MEDS: ALBUTEROL 1.25 MG/3 ML NEB RESP TX SCH ×4 (00:05→21:37)
[2019-06-11 04:35] LABS: Basophils # 0.1 10*3/uL (0.0-0.2); Basophils % 0.8 % (0.0-0.8); Eosinophils # 0.4 10*3/uL (0.0-0.87); Eosinophils % 6.9 % (0.00-10.9); Hematocrit 30.3 VOL% (42.0-52.0); Hemoglobin 9.2 GM/DL (14.0-18.0); Immature Granulocytes % 0.7 %; Immature Granulocytes Absolute 0.04 #; Lymphocytes # 1.6 10*3/uL (1.4-4.0); Lymphocytes % 25.5 % (21.2-54.2); Mean Corpuscular HGB Conc 30.4 GM/DL (32-36); Mean Corpuscular Volume 78.1 FL (87-102); Mean Platelet Volume 11.3 FL (9.6-12.0); Neutrophils % 54.1 % (38.7-73.9); Platelet Count 456 T/CUMM (130-400); Red Blood Count 3.88 MC/CUMM (3.8-5.5); Red Cell Distribution Width 21.5 % (9.3-17.3); White Blood Count 6.1 T/CUMM (4-12)
[2019-06-11 05:11] LABS: Albumin 1.9 G/DL (3.4-5.0); Bilirubin,Total 0.5 MG/DL (0.2-1.0); Calcium 8.7 MG/DL (8.5-10.1); Osmolality,Calculated 282.8 MOS/KG (273-304); Total Protein 7.2 G/DL (6.4-8.3)
[2019-06-11] MEDS: PANTOPRAZOLE 40 MG TABLET PO SCH (09:12)
[2019-06-11] MEDS: MAGNESIUM CHLORIDE 64 MG TABLET PO SCH ×2 (09:12→21:20)
[2019-06-11] MEDS: DOCUSATE SODIUM 100 MG CAPSULE PO SCH ×2 (09:12→21:20)
[2019-06-11] MEDS: POTASSIUM CHLORIDE 20 MEQ TABLET PO SCH (09:12)
[2019-06-11] MEDS ORDERED: MAGNESIUM SULF RIDER 2 GM in PREMIX 1 EACH IV PRN (10:11)
[2019-06-11] MEDS ORDERED: MAGNESIUM SULF RIDER 4 GM in PREMIX 1 EACH IV PRN (10:11)
[2019-06-11] MEDS: POTASSIUM CHLORIDE RIDER 10 MEQ in PREMIX 1 EACH IV PRN ×4 (10:15→13:57)
[2019-06-11] MEDS: SERTRALINE 50 MG TABLET PO SCH (21:21)
[2019-06-12] MEDS: ALBUTEROL 1.25 MG/3 ML NEB RESP TX SCH ×2 (01:29→08:35)
[2019-06-12 08:22] LABS: Basophils # 0.1 10*3/uL (0.0-0.2); Basophils % 0.9 % (0.0-0.8); Eosinophils # 0.3 10*3/uL (0.0-0.87); Eosinophils % 5.2 % (0.00-10.9); Hematocrit 30.1 VOL% (42.0-52.0); Hemoglobin 9.2 GM/DL (14.0-18.0); Immature Granulocytes % 0.5 %; Immature Granulocytes Absolute 0.03 #; Lymphocytes # 1.1 10*3/uL (1.4-4.0); Lymphocytes % 17.1 % (21.2-54.2); Mean Corpuscular HGB Conc 30.6 GM/DL (32-36); Mean Corpuscular Volume 79.2 FL (87-102); Mean Platelet Volume 10.4 FL (9.6-12.0); Monocytes % 10.2 % (1.7-12.7); Neutrophils % 66.1 % (38.7-73.9); Platelet Count 446 T/CUMM (130-400); Red Cell Distribution Width 21.6 % (9.3-17.3); White Blood Count 6.6 T/CUMM (4-12)
[2019-06-12 08:38] LABS: Calcium 8.7 MG/DL (8.5-10.1); Osmolality,Calculated 279.1 MOS/KG (273-304)
[2019-06-12] MEDS: POTASSIUM CHLORIDE 20 MEQ TABLET PO SCH (09:00)
[2019-06-12] MEDS: MAGNESIUM CHLORIDE 64 MG TABLET PO SCH (09:00)
[2019-06-12] MEDS: DOCUSATE SODIUM 100 MG CAPSULE PO SCH (09:00)
[2019-06-12] MEDS: PANTOPRAZOLE 40 MG TABLET PO SCH (09:00)
[2019-06-12 11:48] VITALS: BP 111/67
== END 2019-06-12 14:50 | disposition swing bed (61) | DRG 329 ==
LOC: N.ED 21:10 → N.EDINP 21:10 → N.5E 05-28 04:49 → N.ICU 06-04 01:24 → N.3E 06-06 13:47
PROVIDERS: ADMIT Family Medicine; ATTEND Family Medicine

== ENCOUNTER 2019-07-11 12:37 | Inpatient (IN) ==
[2019-07-11] MEDS ORDERED: TEMAZEPAM 7.5 MG CAPSULE PO PRN (15:29)
[2019-07-11] MEDS ORDERED: ALUMINUM/MAGNES/SIMETH MAX STR 30 ML UDCUP PO PRN (15:29)
[2019-07-11] MEDS ORDERED: PROMETHAZINE INJ 25 MG in SODIUM CHLORIDE 0.9% 50 ML IV PRN (15:29)
[2019-07-11] MEDS ORDERED: BENZTROPINE 2 MG/2 ML AMP IV PRN (15:29)
[2019-07-11] MEDS ORDERED: traMADol 50 MG TABLET PO PRN (15:29)
[2019-07-11] MEDS ORDERED: MYLANTA/LIDO VISC 2:1 300 ML BOTTLE SWISH/SPIT PRN (15:29)
[2019-07-11] MEDS ORDERED: LACTULOSE 20 GM/30 ML UDCUP PO PRN (15:29)
[2019-07-11] MEDS ORDERED: chlorproMAZINE INJ 25 MG in SODIUM CHLORIDE 0.9% 100 ML IV PRN (15:29)
[2019-07-11] MEDS ORDERED: chlorproMAZINE INJ 50 MG in SODIUM CHLORIDE 0.9% 100 ML IV PRN (15:29)
[2019-07-11] MEDS ORDERED: ALPRAZolam 0.25 MG TABLET PO PRN (15:29)
[2019-07-11] MEDS ORDERED: ACETAMINOPHEN 325 MG TABLET PO PRN (15:29)
[2019-07-11] MEDS ORDERED: ONDANSETRON 4 MG/2 ML VIAL IV PRN (15:29)
[2019-07-11] MEDS ORDERED: diphenhydrAMINE CAP 25 MG CAPSULE PO PRN (15:29)
[2019-07-11] MEDS ORDERED: LOPERAMIDE 2 MG CAPSULE PO PRN ×2 (15:29)
[2019-07-11] MEDS ORDERED: MYLANTA/LIDO VISC 2:1 300 ML BOTTLE SWISH/SWAL PRN (15:29)
[2019-07-11] MEDS ORDERED: chlorproMAZINE 25 MG TABLET PO PRN (15:29)
[2019-07-11] MEDS ORDERED: guaiFENesin 200 MG/10 ML UDCUP PO PRN (15:29)
[2019-07-11] MEDS ORDERED: MAGNESIUM HYDROXIDE SUSP 30 ML UDCUP PO PRN (15:29)
[2019-07-11] MEDS: SODIUM CHLORIDE 0.9% IV SCH (16:21)
[2019-07-11] MEDS: FLUOROURACIL IV SCH (16:21)
[2019-07-12 06:11] LABS: Basophils % 0.3 % (0.0-0.8); Eosinophils % 0.3 % (0.00-10.9); Hematocrit 34.6 VOL% (42.0-52.0); Hemoglobin 10.7 GM/DL (14.0-18.0); Immature Granulocytes % 0.4 %; Immature Granulocytes Absolute 0.03 #; Lymphocytes # 1.4 10*3/uL (1.4-4.0); Lymphocytes % 19.8 % (21.2-54.2); Mean Corpuscular HGB Conc 30.9 GM/DL (32-36); Mean Corpuscular Volume 80.7 FL (87-102); Mean Platelet Volume 10.5 FL (9.6-12.0); Monocytes % 11.8 % (1.7-12.7); Neutrophils % 67.4 % (38.7-73.9); Platelet Count 219 T/CUMM (130-400); Red Blood Count 4.29 MC/CUMM (3.8-5.5); Red Cell Distribution Width 22.9 % (9.3-17.3); White Blood Count 7.3 T/CUMM (4-12)
[2019-07-12 06:31] LABS: Anisocytosis 1+; Hypochromasia 1+; Microcytosis 1+; Spherocytes Slight
[2019-07-12 06:32] LABS: Ovalocytes Few; Platelet Estimate Normal; Target Cells Slight; Tear Drop Cells Slight
[2019-07-12 06:33] LABS: Albumin 2.9 G/DL (3.4-5.0); Bilirubin,Total 0.5 MG/DL (0.2-1.0); Calcium 9.3 MG/DL (8.5-10.1); Osmolality,Calculated 275.5 MOS/KG (273-304); Total Protein 7.6 G/DL (6.4-8.3)
[2019-07-12] MEDS: FLUOROURACIL IV SCH (15:29)
[2019-07-12] MEDS: SODIUM CHLORIDE 0.9% IV SCH (15:29)
[2019-07-13 16:11] VITALS: BP 115/77
== END 2019-07-13 16:48 | disposition home health service (06) | DRG 847 ==
LOC: OBSVTOIN 14:32 → N.4E 14:32 → INTOOBSV 14:32
PROVIDERS: ADMIT Specialist; ATTEND Specialist

== ENCOUNTER 2019-07-25 12:00 | Inpatient (IN) ==
[2019-07-25] MEDS ORDERED: MYLANTA/LIDO VISC 2:1 300 ML BOTTLE SWISH/SWAL PRN (14:25)
[2019-07-25] MEDS ORDERED: diphenhydrAMINE CAP 25 MG CAPSULE PO PRN (14:25)
[2019-07-25] MEDS ORDERED: chlorproMAZINE 25 MG TABLET PO PRN (14:25)
[2019-07-25] MEDS ORDERED: BENZTROPINE 2 MG/2 ML AMP IV PRN (14:25)
[2019-07-25] MEDS ORDERED: MYLANTA/LIDO VISC 2:1 300 ML BOTTLE SWISH/SPIT PRN (14:25)
[2019-07-25] MEDS ORDERED: TEMAZEPAM 7.5 MG CAPSULE PO PRN (14:25)
[2019-07-25] MEDS ORDERED: traMADol 50 MG TABLET PO PRN (14:25)
[2019-07-25] MEDS ORDERED: ACETAMINOPHEN 325 MG TABLET PO PRN (14:25)
[2019-07-25] MEDS ORDERED: LOPERAMIDE 2 MG CAPSULE PO PRN ×2 (14:25)
[2019-07-25] MEDS ORDERED: guaiFENesin 200 MG/10 ML UDCUP PO PRN (14:25)
[2019-07-25] MEDS ORDERED: LACTULOSE 20 GM/30 ML UDCUP PO PRN (14:25)
[2019-07-25] MEDS ORDERED: chlorproMAZINE INJ 50 MG in SODIUM CHLORIDE 0.9% 100 ML IV PRN (14:25)
[2019-07-25] MEDS ORDERED: ALPRAZolam 0.25 MG TABLET PO PRN (14:25)
[2019-07-25] MEDS ORDERED: PROMETHAZINE INJ 25 MG in SODIUM CHLORIDE 0.9% 50 ML IV PRN (14:25)
[2019-07-25] MEDS ORDERED: chlorproMAZINE INJ 25 MG in SODIUM CHLORIDE 0.9% 100 ML IV PRN (14:25)
[2019-07-25] MEDS ORDERED: ALUMINUM/MAGNES/SIMETH MAX STR 30 ML UDCUP PO PRN (14:25)
[2019-07-25] MEDS ORDERED: MAGNESIUM HYDROXIDE SUSP 30 ML UDCUP PO PRN (14:25)
[2019-07-25] MEDS ORDERED: ONDANSETRON 4 MG/2 ML VIAL IV PRN (14:25)
[2019-07-25 14:50] LABS: Basophils % 0.3 % (0.0-0.8); Hematocrit 37.2 VOL% (42.0-52.0); Hemoglobin 11.4 GM/DL (14.0-18.0); Immature Granulocytes % 0.3 %; Immature Granulocytes Absolute 0.01 #; Lymphocytes # 0.3 10*3/uL (1.4-4.0); Lymphocytes % 8.4 % (21.2-54.2); Mean Corpuscular HGB Conc 30.6 GM/DL (32-36); Mean Corpuscular Volume 81.6 FL (87-102); Mean Platelet Volume 10.3 FL (9.6-12.0); Monocytes % 0.8 % (1.7-12.7); Neutrophils % 90.2 % (38.7-73.9); Platelet Count 272 T/CUMM (130-400); Red Blood Count 4.56 MC/CUMM (3.8-5.5); Red Cell Distribution Width 23.1 % (9.3-17.3); White Blood Count 3.7 T/CUMM (4-12)
[2019-07-25 15:12] LABS: Albumin 3.1 G/DL (3.4-5.0); Bilirubin,Total 0.4 MG/DL (0.2-1.0); Calcium 8.8 MG/DL (8.5-10.1); Osmolality,Calculated 279.7 MOS/KG (273-304); Total Protein 7.7 G/DL (6.4-8.3); Uric Acid 3.8 MG/DL (3.5-7.2)
[2019-07-25] MEDS: SODIUM CHLORIDE 0.9% IV SCH (15:20)
[2019-07-25] MEDS: FLUOROURACIL IV SCH (15:20)
[2019-07-25 16:03] LABS: Hypochromasia 1+; Lymphocytes 11 % (20-55); Microcytosis 1+; Segmented Neutrophils 88 % (50-85); Total Cells Counted 100
[2019-07-25 16:04] LABS: Helmet Cells Few; Platelet Estimate Adequate
[2019-07-26] MEDS: FLUOROURACIL IV SCH (14:21)
[2019-07-26] MEDS: SODIUM CHLORIDE 0.9% IV SCH (14:21)
[2019-07-27] MEDS ORDERED: ASCORBIC ACID 500 MG TABLET PO SCH (09:00)
[2019-07-27] MEDS ORDERED: MAGNESIUM CHLORIDE 64 MG TABLET PO SCH (09:00)
[2019-07-27] MEDS ORDERED: POTASSIUM CHLORIDE 20 MEQ TABLET PO SCH (09:00)
[2019-07-27] MEDS ORDERED: FERROUS SULFATE 325 MG TABLET PO SCH (09:00)
[2019-07-27 12:56] VITALS: BP 145/73
[2019-07-27] MEDS ORDERED: SERTRALINE 50 MG TABLET PO SCH (21:00)
== END 2019-07-27 15:35 | disposition home health service (06) | DRG 847 ==
LOC: INTOOBSV 13:28 → N.4E 13:28 → UNDODISOB 07-27 15:35
PROVIDERS: ADMIT Specialist; ATTEND Specialist

== ENCOUNTER 2019-08-08 10:02 | Inpatient (IN) ==
[2019-08-08] MEDS ORDERED: ALPRAZolam 0.25 MG TABLET PO PRN (15:32)
[2019-08-08] MEDS ORDERED: PROMETHAZINE INJ 25 MG in SODIUM CHLORIDE 0.9% 50 ML IV PRN (15:32)
[2019-08-08] MEDS ORDERED: chlorproMAZINE 25 MG TABLET PO PRN (15:32)
[2019-08-08] MEDS ORDERED: LACTULOSE 20 GM/30 ML UDCUP PO PRN (15:32)
[2019-08-08] MEDS ORDERED: ACETAMINOPHEN 325 MG TABLET PO PRN (15:32)
[2019-08-08] MEDS ORDERED: BENZTROPINE 2 MG/2 ML AMP IV PRN (15:32)
[2019-08-08] MEDS ORDERED: TEMAZEPAM 7.5 MG CAPSULE PO PRN (15:32)
[2019-08-08] MEDS ORDERED: chlorproMAZINE INJ 50 MG in SODIUM CHLORIDE 0.9% 100 ML IV PRN (15:32)
[2019-08-08] MEDS ORDERED: chlorproMAZINE INJ 25 MG in SODIUM CHLORIDE 0.9% 100 ML IV PRN (15:32)
[2019-08-08] MEDS ORDERED: ALUMINUM/MAGNES/SIMETH MAX STR 30 ML UDCUP PO PRN (15:32)
[2019-08-08] MEDS ORDERED: LOPERAMIDE 2 MG CAPSULE PO PRN ×2 (15:32)
[2019-08-08] MEDS ORDERED: diphenhydrAMINE CAP 25 MG CAPSULE PO PRN (15:32)
[2019-08-08] MEDS ORDERED: MAGNESIUM HYDROXIDE SUSP 30 ML UDCUP PO PRN (15:32)
[2019-08-08] MEDS ORDERED: MYLANTA/LIDO VISC 2:1 300 ML BOTTLE SWISH/SPIT PRN (15:32)
[2019-08-08] MEDS ORDERED: MYLANTA/LIDO VISC 2:1 300 ML BOTTLE SWISH/SWAL PRN (15:32)
[2019-08-08] MEDS ORDERED: ONDANSETRON 4 MG/2 ML VIAL IV PRN (15:32)
[2019-08-08] MEDS ORDERED: guaiFENesin 200 MG/10 ML UDCUP PO PRN (15:32)
[2019-08-08] MEDS ORDERED: traMADol 50 MG TABLET PO PRN (15:32)
[2019-08-08] MEDS: FLUOROURACIL IV SCH (16:00)
[2019-08-08] MEDS: SODIUM CHLORIDE 0.9% IV SCH (16:00)
[2019-08-09 05:52] LABS: Basophils % 0.4 % (0.0-0.8); Eosinophils % 0.1 % (0.00-10.9); Hematocrit 39.6 VOL% (42.0-52.0); Hemoglobin 12.5 GM/DL (14.0-18.0); Immature Granulocytes % 0.4 %; Immature Granulocytes Absolute 0.03 #; Lymphocytes # 1.1 10*3/uL (1.4-4.0); Lymphocytes % 13.1 % (21.2-54.2); Mean Corpuscular HGB Conc 31.6 GM/DL (32-36); Mean Corpuscular Volume 81.8 FL (87-102); Platelet Count 223 T/CUMM (130-400); Red Blood Count 4.84 MC/CUMM (3.8-5.5); Red Cell Distribution Width 22.5 % (9.3-17.3); White Blood Count 8.1 T/CUMM (4-12)
[2019-08-09 06:11] LABS: Hypochromasia 1+; Microcytosis 1+; Ovalocytes Slight; Platelet Estimate Adequate
[2019-08-09 06:17] LABS: Albumin 3.3 G/DL (3.4-5.0); Bilirubin,Total 0.6 MG/DL (0.2-1.0); Calcium 9.4 MG/DL (8.5-10.1); Osmolality,Calculated 275.5 MOS/KG (273-304); Total Protein 8.2 G/DL (6.4-8.3); Uric Acid 3.9 MG/DL (3.5-7.2)
[2019-08-09] MEDS ORDERED: BUPIVACAINE MPF 0.25% 30 ML VIAL ONE (06:31)
[2019-08-09] MEDS ORDERED: HEPARIN 5,000 UNIT/1 ML VIAL ONE (06:31)
[2019-08-09] MEDS ORDERED: LIDOCAINE 1%/EPI INJ 20 ML VIAL ONE (06:31)
[2019-08-09] MEDS ORDERED: ceFAZolin 1,000 MG in SYRINGE 1 EACH IV ONE (07:00)
[2019-08-09] MEDS ORDERED: TISSUE ADHESIVE 1 EACH APPLICATOR TOP ONE (07:45)
[2019-08-09] MEDS ORDERED: PROPOFOL 200 MG/20 ML VIAL IV ONE (08:07)
[2019-08-09] MEDS ORDERED: fentaNYL 100 MCG/2 ML VIAL ONE (08:08)
[2019-08-09] MEDS ORDERED: LIDOCAINE 2% 5 ML VIAL ONE (08:08)
[2019-08-09] MEDS ORDERED: MIDAZOLAM 2 MG/2 ML VIAL ONE (08:08)
[2019-08-09] MEDS: SODIUM CHLORIDE 0.9% IV SCH (18:51)
[2019-08-09] MEDS: FLUOROURACIL IV SCH (18:51)
[2019-08-10 17:14] VITALS: BP 130/54
[2019-08-10] MEDS ORDERED: HEPARIN LOCK FLUSH 500 UNIT/5 ML SYRINGE IV ONE (17:27)
== END 2019-08-10 19:10 | disposition home or self-care (01) | DRG 847 ==
LOC: N.4E 14:49
PROVIDERS: ADMIT Specialist; ATTEND Specialist